=== PATIENT | male | born 1955 | race Caucasian/White ===

== ENCOUNTER → 2016-07-05 08:04 | Day surgery (SDC) | payer OTHER ==
[~2016-07-05 08:04] MED LIST: Buffered Lidocaine 1% SYRIN* 3 ML/SYR SYRINGE INTRADERM ONE; Bupivacaine 0.25% EPI 200,000* 30 ML SDV ONE; Famotidine IV* 10 MG/ML 2 ML (20 mg) IV ONE; Famotidine IV* 10 MG/ML 2 ML (20 mg) ONE; HYDROcodone/ACETAMIN 5-325 MG* 1 TAB PO PRN; Lidocaine 1% MPF wEPI 200,000* 30 ML SDV ONE; Lidocaine 2% PF* 5 ML VIAL ONE; Midazolam* 1 MG/ML 5 ML VIAL (5 MG) ONE; Mineral Oil Sterile, TOPICAL* 25 ML BTL ONE; PROCHLORPERAZINE INJ 5 MG/ML 2 ML VIAL IV PRN; Propofol* 10 MG/ML 20 ML BTL IV PUSH ONE; ceFAZolin 2 GM PREMIX(*) 2 GM/50 ML BAG IVPB ONE; fentaNYL* 50 MCG/ML 2 ML VIAL (100 MCG VIAL) IV PRN; fentaNYL* 50 MCG/ML 2 ML VIAL (100 MCG VIAL) ONE; oxyCODONE/Acetamin 5/325 MG* TAB PO PRN
[2016-07-05 16:08] VITALS: BP 123/62
== END | disposition home or self-care (01) ==
LOC: OR 08:04
PROVIDERS: ATTEND Plastic Surgery
DX: C44.619 Basal cell carcinoma of skin of left upper limb, including shoulder (principal); N18.9 Chronic kidney disease, unspecified; E78.5 Hyperlipidemia, unspecified; G47.33 Obstructive sleep apnea (adult) (pediatric); F31.9 Bipolar disorder, unspecified
CPT/HCPCS: 88305; 88331; 88332; J0690; J2001; J2250; J2704; J3010

== ENCOUNTER 2016-12-29 14:59 | Observation (INO) | payer OTHER ==
[2016-12-29 17:39] LABS: Hematocrit 43 % (42-52); Hemoglobin 14.1 g/dl (14.0-18.0); Mean Corpuscular HGB Conc 33 g/dl (31-36); Mean Corpuscular Hemoglobin 31 pg (27-31); Mean Corpuscular Volume 94 fL (80-94); Mean Platelet Volume 8 um3 (7.4-10.4); Red Blood Count 4.56 10^6/ul (4.0-5.4); Red Cell Distribution Width 14 % (10.5-15); White Blood Count 11.5 10^3/ul (3.5-10.8)
[2016-12-29 18:18] LABS: Albumin 4.2 g/dL (3.2-5.2); BUN/Creatinine Ratio 13.4 (8-20); Calcium 9.5 mg/dL (8.6-10.3); EGFR African American 57.7 (>60); EGFR Non-African American 44.8 (>60); Globulin 3.1 g/dL (2-4); Lithium 0.52 mmol/L (0.6-1.2); Magnesium 2.5 mg/dL (1.9-2.7); Potassium 3.9 mmol/L (3.5-5.0); Total Bilirubin 0.4 mg/dL (0.2-1.0); Total Protein 7.3 g/dL (6.4-8.9)
[2016-12-29 18:19] LABS: Troponin I 0.03 ng/mL (<0.04)
[2016-12-29 18:34] LABS: TSH (Thyroid Stimulating Horm) 1.65 mcIU/mL (0.34-5.60)
--- NOTE | 2016-12-29 18:35 | RAD ---
INDICATION: New onset atrial fibrillation COMPARISON: Chest x-ray dated July 11, 2012 TECHNIQUE: PA and lateral views of the chest were obtained. FINDINGS: The heart and mediastinum are normal in size and contour. The lungs are grossly clear. There is no evidence of large pleural effusion. Degenerative changes of the thoracic spine include loss of intervertebral disc height and anterior marginal osteophyte formation. There is no radiographic evidence of free air beneath the diaphragm IMPRESSION: No radiographic evidence of acute cardiopulmonary disease.
[2016-12-29] MEDS ORDERED: Ibuprofen TAB* 200 MG PO PRN (19:12)
[2016-12-29] MEDS ORDERED: Potassium Chlor TAB* 20 MEQ TAB.ER PO ONE (19:17)
--- NOTE | 2016-12-29 19:35 | ED ---
HPI Cardiac - HPI Summary HPI Summary: 61 y/o male with PMH + for HTN, bipolar, elevated chol presents for heart palpitations. patient states ~ 2-3 weeks ago while eating lunch had episodes where "felt odd" with heart racing, denies chest pain, passing out/ syncope, lightheadedness. tried to get in to see PCP, however was end of day and no EKG available. patient states symptoms lasted throughout the night, and woek the next morning with normal heart rate, asymptomatic. no further episodes until this noon when eating lunch again same symptoms started. Patient went to PC, EKG taken--> a fib, sent to ER. Patient states still can feel heart racing with "funny feeling" but no chest pain, lightheadedness, jaw pain, arm pain. states does not light anything laying on chest, even heavy blanket. - History of Current Complaint Chief Complaint: EDDysrhythmPalp Stated Complaint: A FIB/NEEDS BLOOD THINNER, SENT FROM DR Time Seen by Provider: 12/29/16 17:38 Hx Obtained From: Patient Onset/Duration: Started Hours Ago, Started Weeks Ago Time of Onset: 12:00 Timing: Constant, Lasting Hours Initial Severity: Mild Current Severity: Mild Pain Intensity: 0 Pain Scale Used: 0-10 Numeric Chest Pain Radiates: No Character: Fluttering, Irregular, Skipped Beats Aggravating Factor(s): Nothing Alleviating Factor(s): Nothing Associated Signs and Symptoms: Positive: Palpitations Related History: Similar Episode/Dx as: - ~ 2-3 weeks ago - Allergy/Home Medications Allergies/Adverse Reactions: Allergies Allergy/AdvReac Type Severity Reaction Status Date / Time No Known Allergies Allergy Verified 07/05/16 08:37 Home Medications: Home Medications Lebec Carbonate TAB* 1,200 mg PO QPM 12/29/16 [History Confirmed 12/29/16] PMH/Surg Hx/FS Hx/Imm Hx Previously Healthy: No - HTN, elevated chol, LILY, bipolar Endocrine/Hematology History: Denies: Hx Anemia, Hx Unexplained Bleeding Cardiovascular History: Reports: Hx Hypercholesterolemia, Hx Hypertension - controlled with med, Other Cardiovascular Problems/Disorders - high cholesterol , controlled with med Denies: Hx Aneurysm, Hx Angina, Hx Angioplasty, Hx Auto Implanted Cardiovert Defib, Hx Cardiac Arrest, Hx Cardiomegaly, Hx Congenital Heart Disease, Hx Congestive Heart Failure, Hx Coronary Artery Disease, Hx Deep Vein Thrombosis, Hx Hypotension, Hx Pacemaker/ICD, Hx Peripheral Vascular Disease, Hx Rheumatic Fever, Hx Syncope, Hx Valvular Heart Disease Respiratory History: Reports: Hx Sleep Apnea - cpap Denies: Hx Asthma, Hx Chronic Bronchitis, Hx Chronic Obstructive Pulmonary Disease (COPD), Hx Cystic Fibrosis, Hx Lung Cancer, Hx Pleural Effusion, Hx Pneumonia, Hx Pulmonary Edema, Hx Pulmonary Embolism, Hx Seasonal Allergies, Other Respiratory Problems/Disorders GI History: Denies: Hx Cirrhosis, Hx Crohn's Disease, Hx Diverticulosis, Hx Gall Bladder Disease, Hx Gastroesophageal Reflux Disease, Hx Gastrointestinal Bleed, Hx Hiatal Hernia, Hx Irritable Bowel, Hx Jaundice, Hx Obstructive Bowel, Hx Ileostomy, Hx Pyloric Stenosis, Hx Ulcer, Other GI Disorders Musculoskeletal History: Reports: Hx Arthritis - right knee, currently in physical therapy, Hx Back Problems, Hx Tendonitis - right wrist, flares up occas Denies: Hx Bursitis, Hx Congenital Bone Abnormalities, Hx Fibromyalgia, Hx Gout, Hx Orthopedic Injury, Hx Osteoporosis, Hx Scoliosis, Other Musculoskeletal History Sensory History: Reports: Hx Contacts or Glasses - glasses Denies: Hx Cataracts, Hx Eye Injury, Hx Eye Prosthesis, Hx Glaucoma, Hx Macular Degeneration, Hx Vision Problem, Hx Deafness, Hx Hearing Aid, Hx Hearing Problem, Other Sensory Impairments Opthamlomology History: Reports: Hx Contacts or Glasses - glasses Denies: Hx Cataracts, Hx Eye Injury, Hx Eye Prosthesis, Hx Glaucoma, Hx Macular Degeneration, Hx Vision Problem, Other Sensory Impairments Neurological History: Reports: Hx Migraine, Other Neuro Impairments/Disorders - bipolar, controlled with med Denies: Hx Dementia, Hx Developmental Delay, Hx Headaches, Hx Seizures, Hx Spinal Cord Injury, Hx Transient Ischemic Attacks (TIA) Psychiatric History: Reports: Hx Anxiety, Hx Depression - Cancer History Cancer Type, Location and Year: facial Hx Chemotherapy: No Hx Radiation Therapy: No - Surgical History Surgery Procedure, Year, and Place: removal of cyst right hand, 2004 - [facility] [place]. laminectomy, 2009 - [facility]. umbilical hernia repair, - [facility]. removal of multiple basal cell carcinomas, - [facility] Hx Anesthesia Reactions: No Infectious Disease History: Yes Infectious Disease History: Denies: Hx Clostridium Difficile, Hx Hepatitis, Hx Human Immunodeficiency Virus (HIV), Hx Shingles, Hx Tuberculosis, Traveled Outside the [place] in Last 30 Days - Social History Alcohol Use: Occasionally Alcohol Amount: 2 per glasses wine per month Substance Use Type: Reports: None Smoking Status (MU): Never Smoked Tobacco Review of Systems Constitutional: Negative Eyes: Negative ENT: Negative Positive: Palpitations Respiratory: Negative Gastrointestinal: Negative Genitourinary: Negative Musculoskeletal: Negative Skin: Negative Neurological: Negative Psychological: Normal All Other Systems Reviewed And Are Negative: Yes NIH Scale - NIH Scale Level of Consciousness: Alert/Keenly Responsive Ask Patient the Month and His/Her Age: Both Correct Best Language (Describe Picture, Name Items): No Aphasia Physical Exam Triage Information Reviewed: Yes Vital Signs On Initial Exam: Initial Vitals Temp Pulse Resp BP Pulse Ox 98.3 F 96 20 146/92 95 12/29/16 15:14 12/29/16 15:14 12/29/16 15:14 12/29/16 15:14 12/29/16 15:14 Vital Signs Reviewed: Yes Appearance: Positive: Well-Appearing, No Pain Distress, Well-Nourished Skin: Positive: Warm, Skin Color Reflects Adequate Perfusion, Other - PT, rad pulses 2+ b/l, irregular Head/Face: Positive: Normal Head/Face Inspection Eyes: Positive: EOMI Neck: Positive: Supple, Nontender, No Lymphadenopathy Respiratory/Lung Sounds: Positive: Clear to Auscultation, Breath Sounds Present Cardiovascular: Positive: Pulses are Symmetrical in both Upper and Lower Extremities, IRR, Tachycardia, S1, S2. Negative: Bradycardia, Murmur, Rub, Leg Edema Left, Leg Edema Right Abdomen Description: Positive: Nontender, No Organomegaly, Soft Bowel Sounds: Positive: Present Musculoskeletal: Positive: Normal, Strength/ROM Intact - LE b/l Neurological: Positive: Normal, Sensory/Motor Intact, Alert, Oriented to Person Place, Time, CN Intact II-III, Facial Symmetry, Speech Normal Psychiatric: Positive: Normal AVPU Assessment: Alert - [place] Coma Scale Best Eye Response: 4 - Spontaneous Best Motor Response: 6 - Obeys Commands Best Verbal Response: 5 - Oriented Coma Scale Total: 15 Diagnostics - Vital Signs Vital Signs Temp Pulse Resp BP Pulse Ox 12/29/16 15:14 98.3 F 96 20 146/92 95 - Laboratory Lab Results: Lab Results 12/29/16 12/29/16 12/29/16 Range/Units 17:28 17:28 17:28 WBC 11.5 H (3.5-10.8) 10^3/ul RBC 4.56 (4.0-5.4) 10^6/ul Hgb 14.1 (14.0-18.0) g/dl Hct 43 (42-52) % MCV 94 (80-94) fL MCH 31 (27-31) pg MCHC 33 (31-36) g/dl RDW 14 (10.5-15) % Plt Count 240 (150-450) 10^3/ul MPV 8 (7.4-10.4) um3 Neut % (Auto) 61.7 (38-83) % Lymph % (Auto) 25.5 (25-47) % [place] % (Auto) 9.8 H (1-9) % Eos % (Auto) 2.8 (0-6) % Baso % (Auto) 0.2 (0-2) % Absolute Neuts (auto) 7.1 (1.5-7.7) 10^3/ul Absolute Lymphs (auto) 2.9 (1.0-4.8) 10^3/ul Absolute Monos (auto) 1.1 H (0-0.8) 10^3/ul Absolute Eos (auto) 0.3 (0-0.6) 10^3/ul Absolute Basos (auto) 0 (0-0.2) 10^3/ul Absolute Nucleated RBC 0.01 10^3/ul Nucleated RBC % 0.1 INR (Anticoag Therapy) 0.94 (0.89-1.11) APTT 31.1 (26.0-36.3) seconds D-Dimer, Quantitative < 200 (Less Than 230) ng/mL Sodium 143 (133-145) mmol/L Potassium 3.9 (3.5-5.0) mmol/L Chloride 111 (101-111) mmol/L Carbon Dioxide 23 (22-32) mmol/L Anion Gap 9 (2-11) mmol/L BUN 21 (6-24) mg/dL Creatinine 1.57 H (0.67-1.17) mg/dL Est GFR ( Amer) 57.7 (>60) Est GFR (Non-Af Amer) 44.8 (>60) BUN/Creatinine Ratio 13.4 (8-20) Glucose 101 H (70-100) mg/dL Lactic Acid (0.5-2.0) mmol/L Calcium 9.5 (8.6-10.3) mg/dL Magnesium 2.5 (1.9-2.7) mg/dL Total Bilirubin 0.40 (0.2-1.0) mg/dL AST 29 (13-39) U/L ALT 35 (7-52) U/L Alkaline Phosphatase 52 (34-104) U/L CK-MB (CK-2) 6.2 (0.6-6.3) ng/mL Troponin I 0.03 (<0.04) ng/mL Total Protein 7.3 (6.4-8.9) g/dL Albumin 4.2 (3.2-5.2) g/dL Globulin 3.1 (2-4) g/dL Albumin/Globulin Ratio 1.4 (1-3) TSH 1.65 (0.34-5.60) mcIU/mL Lebec 0.52 L (0.6-1.2) mmol/L 12/29/16 Range/Units 17:28 WBC (3.5-10.8) 10^3/ul RBC (4.0-5.4) 10^6/ul Hgb (14.0-18.0) g/dl Hct (42-52) % MCV (80-94) fL MCH (27-31) pg MCHC (31-36) g/dl RDW (10.5-15) % Plt Count (150-450) 10^3/ul MPV (7.4-10.4) um3 Neut % (Auto) (38-83) % Lymph % (Auto) (25-47) % [place] % (Auto) (1-9) % Eos % (Auto) (0-6) % Baso % (Auto) (0-2) % Absolute Neuts (auto) (1.5-7.7) 10^3/ul Absolute Lymphs (auto) (1.0-4.8) 10^3/ul Absolute Monos (auto) (0-0.8) 10^3/ul Absolute Eos (auto) (0-0.6) 10^3/ul Absolute Basos (auto) (0-0.2) 10^3/ul Absolute Nucleated RBC 10^3/ul Nucleated RBC % INR (Anticoag Therapy) (0.89-1.11) APTT (26.0-36.3) seconds D-Dimer, Quantitative (Less Than 230) ng/mL Sodium (133-145) mmol/L Potassium (3.5-5.0) mmol/L Chloride (101-111) mmol/L Carbon Dioxide (22-32) mmol/L Anion Gap (2-11) mmol/L BUN (6-24) mg/dL Creatinine (0.67-1.17) mg/dL Est GFR ( Amer) (>60) Est GFR (Non-Af Amer) (>60) BUN/Creatinine Ratio (8-20) Glucose (70-100) mg/dL Lactic Acid 1.2 (0.5-2.0) mmol/L Calcium (8.6-10.3) mg/dL Magnesium (1.9-2.7) mg/dL Total Bilirubin (0.2-1.0) mg/dL AST (13-39) U/L ALT (7-52) U/L Alkaline Phosphatase (34-104) U/L CK-MB (CK-2) (0.6-6.3) ng/mL Troponin I (<0.04) ng/mL Total Protein (6.4-8.9) g/dL Albumin (3.2-5.2) g/dL Globulin (2-4) g/dL Albumin/Globulin Ratio (1-3) TSH (0.34-5.60) mcIU/mL Lebec (0.6-1.2) mmol/L Result Diagrams: 12/29/16 17:28 12/29/16 17:28 Lab Statement: Any lab studies that have been ordered have been reviewed, and results considered in the medical decision making process. Disposition - Course Course Of Treatment: EKG- A fib, rate 80-120 during examination, case discussed with Dr. Boyd, [place] [facility] [place] obtained. - Differential Dx - Cardiopulmonary Differential Diagnoses - Cardiopulmonary: Atrial Fibrillation, CHF, Digoxin Toxicity - Diagnoses Provider Diagnoses: Atrial fibrillation Discharge - Discharge Plan Condition: Fair Disposition: ADMITTED TO [facility]
[2016-12-29 19:39] LABS: Urine Bilirubin Negative (Negative); Urine Glucose 1+(50 mg/dL) (Negative); Urine Nitrite Negative (Negative)
--- NOTE | 2016-12-29 20:01 | ED ---
Progress - Progress Note Progress Note: This 61 yr old male was seen at the request of GUANAKO Gonzales working with me in ED. The patient has had palpitations since about 1pm this afternoon. He has not had CP, SOB, or other symptoms. He states he had an episode of the same a couple weeks ago but could not get to doctor while had the symptoms. He is other lopez comfortable. Denies history of ETOH. EXAM: Comfortable, alert and oriented. Neuro Nonfocal Cardiac: without murmur or carla. It is irregular irregular about 100 per minute. Lungs CTA Abd Soft and non tender Legs without edema or tenderness. Assessment Afib increase in ventricular response. He will be admitted to hospitalists for further managment. Course/Dx - Course Course Of Treatment: EKG- A fib, rate 80-120 during examination, case discussed with Dr. Boyd, patient admitted to [facility] [place], blood work obtained. - Diagnoses Provider Diagnoses: Atrial fibrillation
--- NOTE | 2016-12-29 20:55 | HP ---
CC: Dr. Oseguera * [facility] MEDICINE HISTORY AND PHYSICAL: DATE OF ADMISSION: 12/29/16 PRIMARY CARE PHYSICIAN: Dr. Oseguera. ATTENDING PHYSICIAN: Emma Montanez DO * (dictation provided by Korin Colin NP ). CHIEF COMPLAINT: Palpitations. HISTORY OF PRESENT ILLNESS: Mr. Sims is a 61-year-old male with a past medical history of bipolar disorder and hypertension, who presents to the hospital today with palpitations, found to be in AFib at his primary care physician's office. Mr. Sims states that several weeks ago he had an episode where he felt that his heart was racing. He went to his primary care physician' s office, but they were unable to do an EKG at that point and requested that he come back the following morning, but by that point his symptoms had resolved. The patient was instructed that if he were to have symptoms of rapid heart rate , he should come back to the office immediately. The patient states that during the first episode, his heart rate was running about 140. Today he again had symptoms of rapid heart rate and then went to Dr. Oseguera's office where he was found to be in AFib with a heart rate running into the 120s. The patient reports feeling his heart racing and perhaps feeling a bit tired, but did not notice any chest pain or shortness of breath or dyspnea on exertion. Mr. Sims states that he only drinks alcohol occasionally. He drinks a couple of cups of coffee in the morning and a coke for lunch, and sometimes has ice tea , maybe once per week. He has no history of smoking, no history of lung disease. In the emergency room, Mr. Sims was confirmed to be in atrial fibrillation. His heart rate is running about 100 to 115. His labs show his potassium is 3.9 , magnesium is 2.5. His blood pressure is stable and running in the 140s. PAST MEDICAL HISTORY: 1. Bipolar disorder. 2. Hypertension. 3. History of lumbar laminectomy, 2008. 4. History of umbilical hernia repair, 2011. 5. History of skin cancer, basal cell carcinoma. MEDICATIONS: 1. Atorvastatin 40 mg p.o. q.p.m. 2. Coenzyme Q10 200 mg p.o. q.p.m. 3. Irbesartan 300 mg p.o. q.p.m. 4. Ibuprofen 200 mg p.o. q.6 hours p.r.n. 5. Kersey carbonate 1200 mg p.o. q.p.m. 6. Lamotrigine 300 mg p.o. q.p.m. ALLERGIES: No known drug allergies. FAMILY HISTORY: The patient reports his father had esophageal cancer and in his 80s. Mother had her first heart attack in her 70s, but related to mitral valve replacement around the age 80. SOCIAL HISTORY: No report of tobacco or drug use. He drinks alcohol occasionally. He is retired. His is his healthcare proxy. REVIEW OF SYSTEMS: A 14-point review of systems was completed with Mr. Sims, and all those not mentioned above were negative. PHYSICAL EXAMINATION GENERAL: Mr. Sims is sitting on the bed. He is in no acute distress. VITAL SIGNS: Blood pressure 146/92, heart rate 96, temperature 98.3, respiratory rate 20, O2 saturation 95% on room air. LUNGS: Clear to auscultation bilaterally with no accessory muscle use and good aeration. HEART: S1, S2. No murmur, rub, or gallop, and irregular. ABDOMEN: Soft, nontender with bowel sounds positive x4. EXTREMITIES: No cyanosis or edema. NEUROLOGIC: He is alert. He is oriented x3. Moves all extremities equally. There is no facial asymmetry or focal weakness. Extraocular movements are intact. SKIN: Intact. DIAGNOSTIC STUDIES/LAB DATA: Sodium 143, potassium 3.9, chloride 111, serum bicarbonate 23, BUN 21, creatinine 1.57, glucose 101, lactic acid 1.2. Troponin 0.03. WBC 11.5, hemoglobin 14.1, hematocrit 43, platelet count 240, 000. ASSESSMENT/PLAN: Mr. Sims is a 61-year-old male with a past medical history of hypertension and bipolar disorder, who presents to the hospital today with concern for atrial fibrillation with rapid ventricular response. Our plans are for observation in the hospital for the followin. Atrial fibrillation with rapid ventricular response: Plan to treat the patient with metoprolol for rate control. I plan to check a transthoracic echocardiogram. I do not have any clear indication of why the patient is having atrial fibrillation as he has no significant alcohol history or lung disease. Perhaps, it is related to caffeine use or his slightly low potassium. We will replace potassium now. His magnesium is 2.5. At this point, the patient's CHADS-VASC2 score is 1, putting him at a low risk for stroke. I plan to use aspirin only. I think the patient could continue conversation with Dr. Oseguera regarding anticoagulation going forward, especially after he reaches the age of 63. 2. Chronic kidney disease. The patient does not have this listed as a problem , but it is at baseline. I encouraged him to follow up with Dr. Oseguera. He is on irbesartan as outpatient. I am planning to hold that tonight as we are adding metoprolol, but that can be added in a low dose depending on the patient' s blood pressure or we can switch over to an alternate MARILYN inhibitor, etc. 3. DVT prophylaxis with SCDs. 4. Code status is full code. 5. Bipolar disorder: Continue home medications. TIME SPENT: Approximately 60 minutes was spent on admission of this patient; more than half time was spent with the patient at the bedside reviewing the events leading up to this hospitalization, performing the physical examination, and reviewing my plan of care. KORIN COLIN NP [id number]/CPS #: [id number] ALBERTO
[2016-12-29] MEDS: Metoprolol Tartrate TAB* 25 MG PO SCH (20:56)
[2016-12-29] MEDS: NS 0.9% 1000 ML* 1,000 ML IV SCH (21:00)
[2016-12-29] MEDS ORDERED: Lithium Carbonate TAB* 300 MG PO SCH (22:00)
[2016-12-29] MEDS ORDERED: lamoTRIgine TAB(*) 100 MG PO SCH (22:00)
[2016-12-29] MEDS ORDERED: Atorvastatin* 40 MG TAB PO SCH (22:00)
[2016-12-30] MEDS: NS 0.9% 1000 ML* 1,000 ML IV SCH ×2 (04:50→14:59)
[2016-12-30] MEDS ORDERED: Aspirin Low Dose CHEW TAB* 81 MG PO SCH (09:00)
[2016-12-30] MEDS: Metoprolol Tartrate TAB* 25 MG PO SCH (09:33)
--- NOTE | 2016-12-30 12:29 | ECHO ---
Patient: CEE LINCOLN [facility] Rec#: [id number] : 1955 Date: 12/30/2016 Age: 61y Height: 177.8 cm / 70.0 in Weight: 117.9 kg / 259.9 lbs Sex: M BSA: 2.3 Room#: 440 Admit Date#: 12/29/2016 Type: Inpatient Referring: Korin Colin NP Reading: Jewel Mckenna DO Rag Baler: Kimi Figueroa RN RDCS CC: Max Oseguera MD Transthoracic Echocardiogram Indication: New onset A. fib BP: 104/81 HR: 75 Rhythm: A-Fib Findings History: HTN, bipolar disorder, lumbar laminectomy Technical Comments: The study quality is fair. The study is technically limited due to patient body habitus. Completed at 0905. Left Ventricle: The left ventricular chamber size is normal. Moderate concentric left ventricular hypertrophy is observed.with more prominent basal septum Global left ventricular wall motion and contractility are within normal limits. There is normal left ventricular systolic function. The estimated ejection fraction is 60-65%. The assessment of diastolic function is non-diagnostic. Left Atrium: The left atrial chamber size is normal. Right Ventricle: The right ventricular chamber size and systolic function are within normal limits. Right Atrium: The right atrial cavity size is normal. Aortic Valve: The aortic valve is trileaflet. The aortic valve leaflets are mildly thickened. There is no evidence of aortic regurgitation. There is no evidence of aortic stenosis. Mitral Valve: The mitral valve leaflets appear normal. There is a trace of mitral regurgitation. There is no evidence of mitral stenosis. Tricuspid Valve: The tricuspid valve leaflets are normal. There is trace tricuspid regurgitation. No pulmonary hypertension is noted. Pulmonic Valve: The pulmonic valve appears normal. There is a trace pulmonic regurgitation. There is no pulmonic stenosis. Pericardium: There is no significant pericardial effusion. Aorta: There is no dilatation of the ascending aorta. The aortic arch is not well visualized. There is no dilation of the aortic root. Pulmonary Artery: The main pulmonary artery is not well visualized. Venous: The venous system is not well visualized. The inferior vena cava is not visualized. Conclusions Patient is in atrial fibrillation at time of study The left ventricular chamber size is normal. Moderate concentric left ventricular hypertrophy is observed. There is normal left ventricular systolic function. The estimated ejection fraction is 60-65%. Global left ventricular wall motion and contractility are within normal limits. The left atrial chamber size is normal. The right ventricular chamber size and systolic function are within normal limits No significant valvular abnormalities noted. No prior studies available for comparison at time of study. Measurements Name Value Normal Range Ao root diameter (MM) 1.9 cm - LA dimension (AP) MM 14 cm - LA:Ao ratio (MM) 8 ratio - Ao root diameter (MM) in22 cm/m2 - Name Value Normal Range RVDdMajor (2D) 3.9 cm (2.2 - 4.4) RAd ISD 4CH 4.4 cm (3.4 - 4.9) RA (A4C)W 4 cm (2.9 - 4.6) IVSd (2D) 1.5 cm (0.6 - 1) LVPWd (2D) 1.6 cm (0.6 - 1) LVIDd (2D) 4.3 cm (3.6 - 5.4) LVIDs (2D) 2.9 cm - LV FS (2D) 33 % (25 - 45) Aortic Annulus 2 cm (1.4 - 2.6) Ao root diameter (2D) 3.2 cm (2.1 - 3.5) Ascending Ao 3.4 cm (2.1 - 3.4) LA dimension (AP) 2D 3.4 cm (2.3 - 3.8) LAd ISD 4CH 5.1 cm (2.9 - 5.3) LA ISD 4CH W 3.5 cm (2.5 - 4.5) Name Value Normal Range LA ESV SP 4CH (A/L) 45.1 ml - LA ESV SP 2CH (A/L) 62.2 ml - LA ESV BP (A/L) 57.2 ml - LA ESV BP (A/L) index 24.5 ml/m2 - LA ESV SP 4CH (MOD) 40 ml - LA ESV SP 2CH (MOD) 60 ml - Name Value Normal Range MV E-wave Vmax 0.66 m/sec - MV deceleration time 250 msec - LV septal e' Vmax 0.09 m/sec - LV lateral e' Vmax 0.11 m/sec - LV E:e' septal ratio 7.3 ratio - LV E:e' lateral ratio 6 ratio - Name Value Normal Range AV Vmax 1.3 m/sec - AV VTI 22.9 cm - AV peak gradient 6.8 mmHg - AV mean gradient 4 mmHg - LVOT Vmax 1.1 m/sec - LVOT VTI 18.3 cm - LVOT peak gradient 4.6 mmHg - LVOT mean gradient 2.9 mmHg - Name Value Normal Range TR Vmax 1.9 m/sec - TR peak gradient 14 mmHg - RAP 8 mmHg - RVSP 22 mmHg - Name Value Normal Range PV Vmax 0.91 m/sec -
[2016-12-30 16:11] VITALS: BP 113/63
--- NOTE | 2016-12-31 05:59 | DS ---
ADDENDUM NOW INCLUDED ON [facility] REPORT CC: Dr. Oseguera * DISCHARGE SUMMARY: DATE OF ADMISSION: 12/29/16 DATE OF DISCHARGE: 12/30/16 PRIMARY CARE PHYSICIAN: Dr. Oseguera. PRIMARY DISCHARGE DIAGNOSIS: New onset atrial fibrillation. SECONDARY DISCHARGE DIAGNOSES: 1. Bipolar disorder. 2. Hypertension. HOSPITAL COURSE BY PROBLEM: 1. New onset atrial fibrillation. Mr. Sims was admitted with palpitations and was found to be in AFib with RVR at his PCP's office, so he was transferred to the emergency department where he was confirmed to be in AFib with RVR. He was started on metoprolol in the emergency department and was continued on this upon transfer to the floor where he converted to normal sinus rhythm. An echocardiogram was performed, which showed a preserved ejection fraction, a normal left atrial chamber size, and a normal right ventricular chamber size. No valvular abnormalities were noted. He denied alcohol and tobacco use. He did admit to some caffeine use and his TSH was within normal limits at 1.65. He had no other predisposing risk factors for atrial fibrillation; however, he is obese with a barrel chest and may have undiagnosed sleep apnea that may need further workup. Upon discharge, he was in normal sinus rhythm. His short- acting metoprolol was converted to Toprol-XL. His CHADS2-VASc score is 1, so he is being discharged on a baby aspirin only. 2. Bipolar disorder. He was continued on lithium and lamotrigine. 3. Chronic kidney disease. His creatinine was at his baseline at 1.5 on this admission. He was continued on irbesartan. 4. Disposition. The patient was discharged to home on 12/30/16 in fair condition. ADDENDUM: PHYSICAL EXAMINATION: On 12/30/16: Vital Signs: Temperature 98.5 degrees, heart rate 59, respiratory rate 17, pulse ox 96% on room air, blood pressure 113/63. General: Alert, well- appearing man in no distress. HEENT: Pupils equal, round, and reactive to light. Extraocular movements intact. Moist mucosa. Neck: No JVP. No cervical adenopathy. Chest: Regular rate and rhythm. No murmurs. PMI nondisplaced. Lungs: Clear bilaterally. Abdomen: Soft, nontender, nondistended , obese. Extremities: No edema. No ecchymosis. Pulses 2+ throughout. Neurologic: Strength 5/5 throughout. Deep tendon reflexes are 2+. Sensation intact. Oriented x3. REVIEW OF SYSTEMS: Negative for palpitation, shortness of breath, chest pain, headache, weakness, nausea, vomiting, diarrhea or constipation. [id number]/[facility]PS #: [id number]- [id number]/CPS #: [id number] [facility]
--- NOTE | 2016-12-31 07:29 | DS ---
DISCHARGE SUMMARY: * ADDENDUM: PHYSICAL EXAMINATION: On 12/30/16: Vital Signs: Temperature 98.5 degrees, heart rate 59, respiratory rate 17, pulse ox 96% on room air, blood pressure 113/63. General: Alert, well- appearing man in no distress. HEENT: Pupils equal, round, and reactive to light. Extraocular movements intact. Moist mucosa. Neck: No JVP. No cervical adenopathy. Chest: Regular rate and rhythm. No murmurs. PMI nondisplaced. Lungs: Clear bilaterally. Abdomen: Soft, nontender, nondistended , obese. Extremities: No edema. No ecchymosis. Pulses 2+ throughout. Neurologic: Strength 5/5 throughout. Deep tendon reflexes are 2+. Sensation intact. Oriented x3. REVIEW OF SYSTEMS: Negative for palpitation, shortness of breath, chest pain, headache, weakness, nausea, vomiting, diarrhea or constipation. [id number]/[facility] #: [id number] [facility]
== END 2016-12-30 17:00 | disposition home or self-care (01) ==
LOC: ED 14:59 → MEDTELE 19:10
PROVIDERS: ADMIT Internal Medicine; ATTEND Internal Medicine
DX: I48.91 Unspecified atrial fibrillation (principal); F31.9 Bipolar disorder, unspecified; I12.9 Hypertensive chronic kidney disease with stage 1 through stage 4 chronic kidney disease, or unspecified chronic kidney disease; N18.9 Chronic kidney disease, unspecified; R00.0 Tachycardia, unspecified; I45.81 Long QT syndrome; I51.7 Cardiomegaly; Z79.899 Other long term (current) drug therapy
CPT/HCPCS: 36415; 71020; 80053; 80178; 81003; 82553; 83605; 83735; 84443; 84484; 85025; 85379; 85610; 85730; 93005; 93306; 94660; 96360; 96361; 99284; A9270-GY; G0378

== ENCOUNTER 2019-06-20 09:05 | Observation (INO) | payer MEDICARE ==
[2019-06-20] MEDS ORDERED: Perflutren Lipid Microsphere* 3 ML VIAL ONE (09:52)
[2019-06-20 12:38] LABS: ABS Basophils 0.1 10^3/ul (0-0.2); ABS Eosinophils 0.2 10^3/ul (0-0.6); ABS Monocytes 0.6 10^3/ul (0-0.8); ABS Neutrophils 5.8 10^3/ul (1.5-7.7); Hematocrit 41 % (42-52); Hemoglobin 13.5 g/dL (14.0-18.0); Lymphocyte % 23.2 %; Mean Corpuscular HGB Conc 33 g/dL (31-36); Mean Corpuscular Hemoglobin 32 pg (27-31); Mean Corpuscular Volume 96 fL (80-94); Mean Platelet Volume 9.4 fL (7.4-10.4); Platelet Count 189 10^3/uL (150-450); Red Blood Count 4.23 10^6 /uL (4.18-5.48); Red Cell Distribution Width 15 % (10-15); White Blood Count 8.7 10^3/uL (3.5-10.8)
[2019-06-20 12:48] LABS: Activated Partial Thrombo Time 37.2 seconds (26.0-38.0); INR 1.23 (0.82-1.09)
[2019-06-20 12:54] LABS: ALT 37 U/L (7-52); AST 42 U/L (13-39); Albumin 4.1 g/dL (3.2-5.2); Albumin/Globulin Ratio 1.3 (1-3); Alkaline Phosphatase 64 U/L (34-104); BUN/Creatinine Ratio 11.5 (8-20); Blood Urea Nitrogen 20 mg/dL (6-24); CO2 Carbon Dioxide 28 mmol/L (22-32); Calcium 9.8 mg/dL (8.6-10.3); Chloride 111 mmol/L (101-111); EGFR African American 47.7 (>60); EGFR Non-African American 39.5 (>60); Globulin 3.1 g/dL (2-4); Glucose 210 mg/dL (70-100); Total Protein 7.2 g/dL (6.4-8.9)
[2019-06-20 13:04] LABS: Troponin I 0.03 ng/mL (<0.03)
[2019-06-20 13:05] LABS: Anion Gap 7 mmol/L (2-11); Sodium 146 mmol/L (135-145)
[2019-06-20] MEDS ORDERED: Ondansetron INJ* 2 MG/ML VIAL IV PRN (13:50)
[2019-06-20] MEDS ORDERED: Acetaminophen TAB* 325 MG PO PRN (13:50)
[2019-06-20] MEDS ORDERED: Aspirin TAB* 325 MG PO ONE (14:00)
[2019-06-20] MEDS ORDERED: Ticagrelor* 90 MG TAB PO ONE (14:00)
[2019-06-20] MEDS ORDERED: Heparin DRIP 25,000 UNITS(*) 25,000 UNITS/500 ML BAG IV SCH (14:00)
--- NOTE | 2019-06-20 14:01 | CONS ---
CC: GUANAKO Quinonez; Hospitalist Service CARDIOLOGY CONSULTATION REPORT: DATE OF CONSULT: 06/20/19 REASON FOR CONSULT: Abnormal stress test. HISTORY OF PRESENT ILLNESS: Mr. Sims is a 64-year-old gentleman whom I first met 06/03/19, referred for chest pressure, the sensation someone was sitting on his chest associated with soreness in his hand. The patient had also had stopped all his medications about mid April 2019 because of nausea and vomiting. The patient underwent an exercise echo today. He had poor exercise ability, was unable to reach target heart rate. His resting EKG showed small inferior Q' s and inverted T-waves in inferolateral leads. With exercise, he had ST elevation in the inferior leads. His resting echo showed a fixed defect in the posterior wall at the very base. After exercise, the entire inferior wall became severely hypo-to- akinetic and chamber dilated in the 2-chamber view. The patient did not have recurrence of the chest pressure, sensation someone was sitting on his chest. He had some left arm pain that seemed to be more related to the blood pressure cuff and the stress test Post exercise, he feels back to normal and is hungry and wants to eat. PAST MEDICAL HISTORY: 1. Paroxysmal AFib 2017, on Xarelto. 2. Dyslipidemia. 3. Hypertension. 4. Centripetal obesity. 5. Sleep apnea. 6. Reflux. 7. Spinal stenosis. 8. Bipolar disorder. 9. Obstructive sleep apnea. 10. Chronic kidney disease. 11. Hyperglycemia/probable diabetes. PAST SURGICAL HISTORY: Includes: 1. Laminectomy. 2. Hernia repair. 3. Cyst. 4. Basal cell carcinoma surgery. CURRENT OUTPATIENT MEDICATIONS: Include: 1. [place] carbonate 300 mg 4 tabs daily. 2. Xarelto 20 mg daily (held this morning). 3. He is on a proton pump inhibitor started yesterday. Prior outpatient medications based on an old list had included: 1. Irbesartan 300 mg a day. 2. Atorvastatin 40 mg a day. 3. Coenzyme Q. 4. Lamotrigine ER 300 mg a day. ALLERGIES: He has no identified drug allergies. FAMILY HISTORY: Significant in that his mother of heart disease. His older sister had a history of colon cancer. He had a brother with aortic dissection and father of gastric cancer and his mother had a history of heart disease uncertain type. SOCIAL HISTORY: The patient is , with children. 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 Never smoked. No history of alcohol or recreational drug use. Drinks a cup of coffee a day and sodas. REVIEW OF SYSTEMS: Positive for exertional dyspnea, for his recent nausea, vomiting he felt was related to medications. He has arthritic pain that impacts ambulation. He has been under stress from the COVID virus in his family. He denies active chest pain, pressure, heaviness, arm pain, orthopnea, PND, fevers, chills, sweats. He has no coughing. DIAGNOSTIC STUDIES/LAB DATA: Labs from 12/11/18 showed a white count 17, hematocrit 38, platelets 229. Sodium 142, potassium 4.2, glucose 146, BUN 29, creatinine 1.6, GFR 43, magnesium 2.3. EKG from 06/03/19 showed normal sinus rhythm, 63 beats a minute, inverted T- waves in the inferior and lateral leads new replacing flattened T-waves from an EKG at [facility]. ECG 07/26/12: NSR, no Q's noted in the inferior leads, normal ST/T waves. ECHO [employer] 06/13/2019: Mod-severe LVH, EF 55-60%, no wall motion abnormalities. Normal valve function. Lexiscan myoview study 07/12/12: EF 58%, normal perfusion rest and post stress. Stress echo today as above abnormal with fixed and reversible defect, poor exercise ability. ASSESSMENT AND PLAN: In summary, Mr. Sims is a 64-year-old gentleman, being admitted for markedly abnormal stress test with evidence of inducible ischemia in the inferior wall at low level exercise associated with ST elevation. He did not have reproduction of his chest discomfort, but with hyperglycemia, probable diabetes, he is at high risk for silent ischemia. The patient's recent history with chest heaviness, sensation of someone sitting on his chest and his nausea/medication intolerance could all have been anginal. The plan is to cath in the morning. I have discussed this with Dr. Bhatia. For the patient's ischemia, I recommend starting a low-dose beta-elaina and Norvasc and potentially resuming an MARILYN inhibitor based on updated labs if creatinine allows. Heparin drip as per request from Dr. Bhatia. Initiation of Brilinta loading today. Resumption of a statin, I would recommend atorvastatin 80 mg a day. Keep off Xarelto for now, monitor. If pt had asymptomatic afib when off his Xarelto could have had an embolic PA as well. Updated labs, electrolytes, lipids, LFTs, and hemoglobin A1c and troponin are recommended. The patient is high risk with his recent nausea and vomiting, this may limit what medications he tolerates if it is in fact due to meds and GI issues and ot an anginal equivalent, we will see how he does in terms of potential for needing any additional GI assistance and await labs and cath results for additional recommendations. This patient is high risk for vascular disease. Thank you for allowing me to assist in this nice gentleman's care. [id number]/[facility] #: [id number] ALBERTO
[2019-06-20] MEDS: NS 0.9% 1000 ML** 1,000 ML IV SCH ×2 (14:06→23:17)
[2019-06-20 14:30] LABS: Cholesterol 173 mg/dL; HDL Cholesterol 24.9 mg/dL; LDL Cholesterol 77 mg/dL; Triglycerides 356 mg/dL
[2019-06-20] MEDS: Heparin VIAL(*) 5000 UNITS/ML VIAL (FIVE THOUSAND) IV SCH ×2 (15:31→22:19)
[2019-06-20] MEDS: Heparin DRIP 25,000 UNITS(*) 25,000 UNITS/500 ML BAG IV SCH (15:34)
[2019-06-20] MEDS: Atorvastatin* 80 MG TAB PO SCH (16:34)
[2019-06-20 16:37] LABS: Troponin I 0.04 ng/mL (<0.03)
--- NOTE | 2019-06-20 17:04 | HP ---
AMENDED REPORT NOW INCLUDES DESIGNATED COSIGNER - ESIGNED BEFORE ADJUSTMENT* ADMISSION HISTORY AND PHYSICAL: DATE OF ADMISSION: 06/20/19 PRIMARY CARE PHYSICIAN: Dr. Oseguera. PROVIDER: Shadia Ruiz NP ATTENDING PHYSICIAN: Dr. Livingston.* (DICTATED BY SHADIA RUIZ NP) OTHER PROVIDERS: Dr. Villegas and Dr. Bhatia. CHIEF COMPLAINT: Chest pain and pressure. HISTORY OF PRESENT ILLNESS: This is a 64-year-old male with a past medical history significant for bipolar, hypertension, and AFib, who was seen in [facility] today for an outpatient exercise echo with Dr. Villegas. He was unable to reach his target heart rate; however, even at rest, showed small inferior Q and inverted T waves in inferior lateral leads; with exercise, he had ST elevation in inferior leads. His resting echo did show a fixed defect of the posterior wall at the vary base, and after exercise, the entire inferior wall became severely hypo to akinetic. During this time, he did not have any recurrence of chest pressure or sensation that somebody was sitting on his chest, though he had some left arm pain that could be more related to the blood pressure cuff. His history of chest pain and pressure started in November or December of this past year where he was waking up with chest pressure daily that progressed to pain. He was unable to verbalize any specific triggers or relievers. Some of it does appear to be more anxiety related; however, he has been woken up out of the sleep due to chest pain and pressure. The hospitalists were asked to evaluate the patient for admission. PAST MEDICAL HISTORY: Bipolar, hypertension, obstructive sleep apnea with CPAP , basal cell carcinoma, diabetes type 2, GERD, AFib, hyperlipidemia, anxiety, and prostate cancer. PAST SURGICAL HISTORY: In 2008, he had a lumbar laminectomy, 2012 umbilical hernia repair. He had prostatectomy. HOME MEDICATIONS: 1. Lansoprazole 30 mg p.o. daily. 2. Xarelto 20 mg p.o. daily. 3. [place] carbonate 1200 mg p.o. q.p.m. ALLERGIES: To nothing. FAMILY HISTORY: Father due to gastric cancer. Mother due to heart disease. 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 He has never smoked. Denied any ETOH use and consumes 1 soda and 1 coffee a day. No other recreational substance use. REVIEW OF SYSTEMS: A 12-point system review was performed, which was positive for recent history of chest pain and pressure, though none currently. Denies any shortness of breath. Denies any fever, chills, cough, sore throat, abdominal pain, nausea, vomiting, or issues moving his bowel or bladder. PHYSICAL EXAMINATION GENERAL: This is a well developed, though anxious gentleman seen resting in the bed, in no acute distress. VITAL SIGNS: 97.8 Fahrenheit, 63 pulse, 18 respirations, 96% oxygen on room air , and 134/86 blood pressure. HEENT: Conjunctivae pink and moist. PERRLA. EOMs intact. Oropharynx clear. Mucous membranes dry. Voice is whispery. NECK: Supple. RESPIRATORY: Lung sounds clear throughout bilaterally on room air. No accessory muscle use noted. CARDIAC: S1, S2 present. Heart rate regular. No murmurs, gallops, or rubs appreciated. No carotid bruits. ABDOMEN: Large, soft, nontender, nondistended with positive bowel sounds x4. MUSCULOSKELETAL: Able to move all extremities, 1+ nonpitting edema to left lower extremity, 2+ positive pedal pulses. NEURO: Sensation intact to light touch. No focal deficits appreciated. PSYCH: He is alert and oriented x4. Anxious, though thought content organized. SKIN: Intact without any rashes or lesions appreciated. DIAGNOSTIC STUDIES/LAB DATA: Stress echo as spoken about in HPI. Pertinent lab data: WBCs 8.7, hemoglobin 13.5, hematocrit 41, MCV is 96, MCH 32. Sodium 146, creatinine 1.74, glucose 210, AST 42, troponin 0.03, triglycerides 357, cholesterol 173, LDL cholesterol 77, HDL cholesterol 24.9, and lithium level 0.80. ASSESSMENT AND PLAN: My impression is this is a 64-year-old male with a past medical history significant for atrial fibrillation, bipolar, and hypertension, who is being admitted on 06/20/19 to undergo a cardiac catheterization 06/21/[address] Bhatia. 1. Chest pain. The patient already underwent a stress echo with Dr. Villegas today which had worrisome findings of ST elevation and hypo to akinesis after exercise in the inferior wall. He is to get a loading dose of Brilinta and aspirin this afternoon and then later tonight will start on twice a day 90 mg of Brilinta. Tomorrow, he will begin a baby aspirin. He will also be stated on a heparin drip per unstable angina protocol and to be transferred to [address] [place] [address] with telemetry monitoring. His HEART score is 8 which is equivalent to a 50% to 65% of major adverse cardiovascular event. He is allowed to have a consistent carb diet and then will be n.p.o. after midnight in preparation for his procedure. 2. Diabetes type 2. He does not normally take any medications at home and does not check his blood sugar as typically it has been stable, though his last hemoglobin A1c was in April which was elevated at 7.1 which the patient states is because he was drinking a lot of juice. Fingersticks will be done b.i.d. and providers to be notified if blood sugar goes below 60 or above 200. 3. Obstructive sleep apnea. He is to use his home CPAP or if that is not available to keep head of bed greater than 30 degrees and placed on nasal cannula. 4. Bipolar. He is to continue his lithium. [place] level was within normal range. 5. Atrial fibrillation. Due to the use of Brilinta, aspirin, and heparin drip , Xarelto is on hold for now. The patient did not take a beta-elaina at home. Will be started on 12.5 of metoprolol tartrate twice a day which is per recommendation of Dr. Bhatia. 6. Gastroesophageal reflux disease. He will be given pantoprazole daily while in hospital, though when he goes home he may continue his lansoprazole. 7. DVT prophylaxis. He will be receiving heparin drip as well as Brilinta twice a day. 8. Code status is full code. CONDITION: Guarded. DISPOSITION: Admit OBV to [address] [place] [address]. TIME SPENT: Time spent on the patient was about 60 minutes with 30 of that spent [id number]. Case was reviewed by my attending and they agree with the plan of care. SHADIA RUIZ, ED [id number]/[facility] #: [id number] ALBERTO
[2019-06-20 19:33] LABS: Troponin I 0.04 ng/mL (<0.03)
[2019-06-20] MEDS: Metoprolol Tartrate TAB* 25 MG PO SCH (20:56)
[2019-06-20] MEDS: Lithium Carbonate TAB* 300 MG PO SCH (20:57)
[2019-06-20] MEDS: Ticagrelor* 90 MG TAB PO SCH (22:07)
[2019-06-21] MEDS ORDERED: Melatonin 3 MG TAB PO PRN (03:00)
[2019-06-21 04:17] LABS: ABS Basophils 0.1 10^3/ul (0-0.2); ABS Eosinophils 0.2 10^3/ul (0-0.6); ABS Lymphocytes 1.8 10^3/ul (1.0-4.8); ABS Monocytes 0.5 10^3/ul (0-0.8); ABS Neutrophils 4.8 10^3/ul (1.5-7.7); Eosinophil % 2.5 %; Hematocrit 37 % (42-52); Hemoglobin 12.2 g/dL (14.0-18.0); Lymphocyte % 24.3 %; Mean Corpuscular HGB Conc 33 g/dL (31-36); Mean Corpuscular Hemoglobin 32 pg (27-31); Mean Corpuscular Volume 97 fL (80-94); Nucleated Red Blood Cells % 0.1; Platelet Count 160 10^3/uL (150-450); Red Blood Count 3.86 10^6 /uL (4.18-5.48); Red Cell Distribution Width 15 % (10-15); White Blood Count 7.4 10^3/uL (3.5-10.8)
[2019-06-21 04:31] LABS: BUN/Creatinine Ratio 11.9 (8-20); EGFR African American 44.5 (>60); EGFR Non-African American 36.8 (>60); Potassium 3.8 mmol/L (3.5-5.0)
[2019-06-21] MEDS: Metoprolol Tartrate TAB* 25 MG PO SCH ×2 (08:16→21:53)
[2019-06-21] MEDS: Aspirin 81 mg CHEW TAB* 81 MG TAB.CHEW PO SCH (08:16)
[2019-06-21] MEDS: Pantoprazole TAB * 40 MG TAB PO SCH (08:17)
[2019-06-21] MEDS: Ticagrelor* 90 MG TAB PO SCH (08:17)
[2019-06-21] MEDS: Acetylcysteine CAP (RENAL)* 600 MG PO SCH ×2 (08:17→21:53)
[2019-06-21] MEDS ORDERED: Ticagrelor* 90 MG TAB PO SCH (09:00)
[2019-06-21] MEDS: NS 0.9% 1000 ML** 1,000 ML IV SCH (09:27)
[2019-06-21 10:14] LABS: Folate 15.97 ng/mL (>3.99)
[2019-06-21] MEDS ORDERED: Iodixanol 320 (CONTRAST) 100 ML SDV ONE (12:52)
[2019-06-21] MEDS ORDERED: Lidocaine 1% INJ* 10 MG/ML 30 ML SDV ONE (12:52)
[2019-06-21] MEDS ORDERED: Heparin 2 UNITS/ML IVPREMIX* 2,000 ML IV ONE (12:52)
[2019-06-21] MEDS ORDERED: nitroGLYCERIN DRIP* 25,000 MCG/250 ML BTL ONE (12:55)
[2019-06-21] MEDS ORDERED: Heparin(*) 1000 UNIT/ML 10 ML VIAL CATH LAB IV ONE (12:55)
[2019-06-21] MEDS ORDERED: VERAPAMIL 2.5 MG/ML 2 ML VIAL ** 5 mg/2 ml ONE (12:55)
[2019-06-21] MEDS ORDERED: fentaNYL* 50 MCG/ML 2 ML VIAL (100 MCG VIAL) ONE (12:59)
[2019-06-21] MEDS ORDERED: Midazolam* 1 MG/ML 5 ML VIAL (5 MG) ONE (12:59)
[2019-06-21] MEDS ORDERED: NS 0.9% 1000 ML** 1,000 ML IV SCH (14:00)
--- NOTE | 2019-06-21 15:22 | CATH ---
CC: Dr. Sudha Villegas; Dr. Dale Marques, [facility]; Dr. Max Oseguera* CARDIAC CATHETERIZATION REPORT: DATE OF PROCEDURE: 06/21/19 INDICATION FOR PROCEDURE: Asked by Dr. Villegas to perform diagnostic coronary arteriography in this gentleman with a history of prior chest discomfort with bilateral arm discomfort, with abnormal EKG suggesting incomplete inferior wall myocardial infarction with markedly abnormal stress echo test suggesting severe proximal inferior hypo to akinesis as well as the development of severe lateral and distal anterolateral hypokinesis with exercise. PROCEDURE: Coronary arteriography. CONSENT: The patient was interviewed and examined on the floor of the hospital where the risks and benefits were explained. He understood them and wished to proceed. I did emphasize specifically in his case because of his significant renal insufficiency that he was at a high risk for acute renal insufficiency and acute renal failure. He understood this and wished to proceed. APPROACH: The right radial artery was assessed by ultrasound prior to coming to the cardiovascular laboratory and was found to be an acceptable size and as such this was the approach utilized. PRE-CARDIAC CATHETERIZATION LABORATORY RESULTS: Hemoglobin and hematocrit of 12.2 and 37 with a platelet count of 160,000. BUN and creatinine of 22 and 1.85 , sodium 146, potassium 3.8, chloride 113, bicarb 25. Troponin was 0.04. EQUIPMENT UTILIZED: 1. Right radial artery sheath was a 6-[place] Glidesheath Slender. 2. Diagnostic coronary catheters include a TIG4 5-[place] catheter and a FL 3.5 curve 5-[place] catheter. 3. Diagnostic guidewire was a 260 length Leyva guidewire. 4. The closure device utilized was a long Vasc Band. MEDICATIONS GIVEN: 1. The patient received a radial artery cocktail including 5000 units of heparin, 300 mcg of nitroglycerin, and 3 mg of verapamil. 2. 1% Xylocaine was used for local anesthesia. 3. The patient had already received this morning aspirin 81 mg and Brilinta 90 mg. 4. He received 1 mg of Versed intravenously in the electronic lab technician for sedation. DESCRIPTION OF PROCEDURE: The patient was brought to the cardiovascular laboratory where a formal time-out was performed. He was prepped and draped in sterile fashion, and under ultrasound guidance, the right radial artery was cannulated and the sheath was placed. Coronary arteriography was performed utilizing the diagnostic catheters, at the end of which the films were reviewed. The catheters and sheath were removed and hemostasis was obtained with a Vasc Band. The reverse [place]be[place] was a B. Of note, a 3 cc syringe was initially utilized to try to minimize total dye usage. The total contrast used was 80 cc of Visipaque dye. The radiation exposure included 5.9 minutes of fluoro time. The air kerma radiation was 1815 mGy. The DAP radiation was 9450 microgray per meter squared. RESULTS: CORONARY ARTERIOGRAPHY: A. Left coronary artery: 1. Left main - widely patent. 2. Left anterior descending artery. The left anterior descending artery traversed to the apical region. It gave off a bifurcating mid diagonal branch. The mid portion of the LAD was noted to have diffuse disease with narrowings as much as 65% to 70%. The proximal area showed tapering of a larger vessel with 55% to 60% narrowing. The mid to distal vessel had mild disease of 30% to 35%. The mid diagonal branch which bifurcated had a critical 90% proximal lesion seen, which appeared to be prior to the bifurcation. 3. Circumflex artery - a nondominant vessel supplying a thin first obtuse marginal branch. Past this point, there was a moderate to large size bifurcating obtuse marginal branch extending to the inferoposterior apical region, which had a hazy significant 75% to 80% obstruction that appeared to be perhaps a dissected area. Past that point, it did not show significant disease. B. Right coronary artery: The right coronary artery is a dominant vessel with diffuse disease seen throughout its mid to distal portion with narrowing just after a mid acute marginal branch of approximately 65% to 70% followed by subtotal occlusion of this vessel with either significant dissected area versus extensive clot present. There is faint filling to the distal vessel showing 2 posterior left ventricular branches (the posterior descending artery of the right coronary artery is seen via the left coronary artery collaterals, but unfortunately the PDA does not fill well back to the [place] vessel in order to determine whether or not there is widely patent connection between the PDA and the [place] right coronary artery). OVERALL ASSESSMENT: Significant multivessel disease as described above. Given these findings and the markedly abnormal stress test with left ventricular dilatation and decreased contractility and given the extent of the right coronary artery disease, I believe bypass surgery is probably the best option to the diagonal branch, distal LAD, obtuse marginal branch, and posterior descending artery and posterior LV branch of the right coronary artery. Of note, unfortunately, he does have renal insufficiency and at this point in time, we will recheck his BUN and creatinine tomorrow after hydration to see whether or not there has been significant compromise to it. We will discuss the option of transfer for bypass surgery with [facility] that this seems to be the preference of the family at this point of where they would want to go. Aggressive risk factor management as always will have to be pursued including weight reduction as well. I have personalluy spoken with Dr. Dale Marques at [facility] at . He has graciously accepted the patient for transfer , for tomorrow morning. He understands that thepatient's kidney function will need to be monitored for contrast induced worsening of his renal insufficiency. Also I explained to him that the patient did receive brilinta, and as such surgery will need to be delayed until it's effect wears off. The patient will be restarted in heparin tonight. I also discussed all of this with Katy Zhou MD the hospitalist managing the patient. [id number]/[facility] #: [id number] [facility]
[2019-06-21] MEDS ORDERED: Dextrose 50% Syringe 50 ML* 25 GM/50 ML SYRINGE IV PUSH PRN (17:18)
--- NOTE | 2019-06-21 17:19 | PN ---
Subjective Date of Service: 06/21/19 Interval History: Admitted after concerning stress echo, with cath today significant for multiple vessel disease. Interventionalist recommending transfer to higher level of care for bypass, and patient is accepted at [facility], to be transported tomorrow morning. Pt pleasant and in good spirits. Denies chest pain or SOB. Objective Active Medications: Acetylcysteine (Acetylcysteine Cap (Renal)*) 600 mg PO BID [facility] Stop: 06/22/19 21:01 Last Admin: 06/21/19 08:17 Dose: 600 mg Aspirin (Aspirin 81 Mg Chew Tab*) 81 mg PO DAILY [facility] Last Admin: 06/21/19 08:16 Dose: 81 mg Atorvastatin Calcium (Lipitor*) 80 mg PO 1700 [facility] Last Admin: 06/20/19 16:34 Dose: 80 mg Dextrose (D50w Syringe 50 Ml*) 12.5 gm IV PUSH .FOR FS < 60 - SS PRN PRN Reason: FS < 60 Heparin Sodium (Porcine) (Heparin Vial(*)) 0 units IV .PER PROTOCOL [facility] Last Admin: 06/20/19 22:19 Dose: 4,000 units Heparin Sodium/Dextrose (Heparin Drip 25,000 Units(*)) 25,000 units in 500 mls @ 0 mls/hr IV PER RATE [facility]; Protocol Last Admin: 06/20/19 15:34 Dose: 20 mls/hr Sodium Chloride (Ns 0.9% 1000 Ml) 1,000 mls @ 100 mls/hr IV .per rate [facility] Stop: 06/21/19 23:59 Last Admin: 06/21/19 14:00 Dose: 100 mls/hr Insulin Human Lispro (Humalog*) 0 units SUBCUT ACHS [facility]; Protocol [place] Carbonate (Enoree Carbonate Tab*) 1,200 mg PO QPM [facility] Last Admin: 06/20/19 20:57 Dose: 1,200 mg Melatonin (Melatonin) 3 mg PO BEDTIME PRN PRN Reason: INSOMNIA Last Admin: 06/21/19 03:00 Dose: 3 mg Metoprolol Tartrate (Lopressor Tab*) 12.5 mg PO Q12HR [facility] Last Admin: 06/21/19 08:16 Dose: 12.5 mg Pantoprazole Sodium (Protonix Tab*) 40 mg PO DAILY [facility] Last Admin: 06/21/19 08:17 Dose: 40 mg Vital Signs - 8 hr 06/21/19 06/21/19 06/21/19 11:15 14:01 14:02 Temperature 98.3 F Pulse Rate 50 47 51 Respiratory 20 18 18 Rate Blood Pressure 137/72 119/75 (mmHg) O2 Sat by Pulse 98 96 96 Oximetry 06/21/19 06/21/19 06/21/19 14:16 14:32 14:47 Temperature Pulse Rate 46 55 51 Respiratory 18 17 17 Rate Blood Pressure 146/69 157/74 141/76 (mmHg) O2 Sat by Pulse 95 96 98 Oximetry 06/21/19 06/21/19 06/21/19 15:00 15:02 15:16 Temperature Pulse Rate 72 60 60 Respiratory 25 19 17 Rate Blood Pressure 148/60 112/72 (mmHg) O2 Sat by Pulse 97 98 97 Oximetry 06/21/19 06/21/19 06/21/19 15:31 15:45 16:00 Temperature 98.2 F Pulse Rate 50 51 Respiratory 19 22 Rate Blood Pressure 120/68 131/65 (mmHg) O2 Sat by Pulse 100 95 Oximetry 06/21/19 06/21/19 16:25 16:28 Temperature Pulse Rate 51 54 Respiratory Rate Blood Pressure 134/71 161/142 (mmHg) O2 Sat by Pulse 97 96 Oximetry Oxygen Devices in Use Now: None Appearance: well appearing jovial man in NAD Eyes: No Scleral Icterus Ears/Nose/Mouth/Throat: Clear Oropharnyx, Mucous Membranes Moist Neck: NL Appearance and Movements; NL JVP, Trachea Midline Respiratory: Symmetrical Chest Expansion and Respiratory Effort, Clear to Auscultation Cardiovascular: NL Sounds; No Murmurs; No JVD, RRR Abdominal: NL Sounds; No Tenderness; No Distention, No Hepatosplenomegaly, - - protuberant Extremities: No Edema Skin: No Rash or Ulcers Neurological: Alert and Oriented x 3 Result Diagrams: 06/21/19 04:09 06/21/19 04:09 Assess/Plan/Problems-Billing Assessment: 64M with DM2, HTN, CKD, afib on Xarelto, bipolar disorder, LILY on CPAP, admitted after markedly abnormal stress echo, with diagnostic cath showing multiple vessel disease. - Patient Problems (1) Multiple vessel coronary artery disease Comment: Seen on catheterization 06/20, after severely abnormal stress echo. - cont 4 doses of NAC ordered by cards for renal disease - appreciate interventionalist recs - accepted at [facility] by Dale Marques (CT surgery); to transfer 06/21 - cont aspirin and heparin gtt - cont atorvastatin 80mg nightly - started on metoprolol tartrate 12.5 q12h (2) Diabetes mellitus type 2 in obese Comment: Was not on meds at home. - f/u A1c - initiate insulin lispro sliding scale (3) Atrial fibrillation Comment: Was on Xarelto on home, without rate control agent. - now on heparin drip and beta-elaina for CAD (4) HTN (hypertension) Comment: BPs largely at goal here. Was not on meds at home. (5) LILY (obstructive sleep apnea) Comment: - cont home CPAP (6) Bipolar disorder Comment: - cont home lithium (7) GERD (gastroesophageal reflux disease) Comment: - cont home PPI (8) DVT prophylaxis Comment: on hep gtt for multiple vessel disease (9) Full code status Current Visit: Yes Status: Acute Code(s): Z78.9 - OTHER SPECIFIED HEALTH STATUS SNOMED Code(s): 506885959
[2019-06-21] MEDS: Atorvastatin* 80 MG TAB PO SCH (17:39)
[2019-06-21] MEDS: Lithium Carbonate TAB* 300 MG PO SCH (17:39)
[2019-06-21] MEDS ORDERED: Insulin LISPRO* 1 UNITS UNIT SUBCUT SCH (18:00)
[2019-06-21] MEDS: Insulin LISPRO* 1 UNITS UNIT SUBCUT SCH ×2 (18:07→21:54)
--- NOTE | 2019-06-21 20:28 | DS ---
CC: Max Oseguera MD * DISCHARGE/TRANSFER SUMMARY: DATE OF ADMISSION: 06/20/19 DATE OF DISCHARGE: 06/22/19 PRIMARY CARE PHYSICIAN: Max Oseguera MD PRIMARY DIAGNOSES: 1. Significant multivessel coronary artery disease. 2. Uncontrolled diabetes mellitus. SECONDARY DIAGNOSES: 1. Chronic kidney disease. 2. Atrial fibrillation. 3. Bipolar disorder. 4. Obstructive sleep apnea, on CPAP. 5. Gastroesophageal reflux disease. 6. Obesity. CONSULTATIONS: Dr. Marcos Bhatia of Interventional Radiology. PROCEDURES: 1. Stress echocardiogram on 06/20/19. 2. Diagnostic cardiac catheterization on 06/21/19. MEDICATIONS ON TRANSFER: 1. Heparin drip continuous. 2. Aspirin 81 mg daily. 3. Atorvastatin 80 mg in the evening. 4. Metoprolol tartrate 12.5 mg every 12 hours. 5. Acetylcysteine 600 mg capsule b.i.d. for one more day. 6. Lansoprazole 30 mg daily. 7. [place] 1200 mg in the evening. 8. Melatonin 3 mg at bedtime. 9. Insulin lispro sliding scale a.c. and h.s. HISTORY OF PRESENT ILLNESS: Mr. Sims is a 64-year-old man with diabetes; hypertension; CKD; AFib, on Xarelto; bipolar disorder; LILY, on CPAP, who is admitted after a stress echocardiogram due to significant abnormalities on that test. Mr. Sims was referred for this echocardiogram for ongoing chest pressure and the sensation of someone sitting on his chest, which radiated to his left hand. The patient notes that he stopped all of his home medications approximately 1 month ago due to nausea and vomiting. On day of admission, he underwent a stress echocardiogram and demonstrated poor exercise ability and was unable to reach target heart rate. His resting EKG showed small inferior Qs with inverted T waves in inferolateral leads and with exercise, he had ST elevation in inferior leads. His resting echo showed a fixed defect in the posterior wall at the very base. After exercise, the entire inferior wall became severely hypo to akinetic and chamber dilated in the 2-chamber view. The patient did not have recurrence of chest pressure or the sensation of someone sitting on his chest. He did experience some left arm pain that seemed to be more related to the blood pressure cuff and the stress test. Post exercise, the patient felt normal and was hungry and wanted to eat; however, given abnormalities, Dr. Marcos Bhatia of Interventional Radiology was asked to perform a diagnostic coronary arteriography. So, the patient was admitted to the hospitalist service with plan for catheterization in the next day. The next day, the patient underwent cardiac catheterization, which was significant for multivessel disease. The mid portion of the LAD was noted to have diffuse disease with narrowing as much as 65% to 70%. The proximal area showed tapering of the larger vessel with 55% to 60% narrowing. The mid to distal vessel had mild disease of 30% to 35%. The mid diagonal branch, which bifurcated, had a critical 90% proximal lesion, which appeared to be prior to the bifurcation. The circumflex artery had a nondominant vessel supplying a thin first obtuse marginal branch and past this point, there was a moderate-to- large size bifurcating obtuse marginal branch extending into the mid inferoposterior apical region, which had a hazy significant 75% to 80% obstruction that appeared to be perhaps a dissected area just after a mid acute marginal branch of the RCA that was approximately 65% to 70% lesion followed by a subtotal occlusion of this vessel with either significant dissecting area versus extensive clot present. Given these findings and the markedly abnormal stress test with LV dilatation and decreased contractility, it was recommended that the patient undergo bypass surgery. Dr. Bhatia spoke with Dr. Dale Marques at [facility] in [facility] and the patient was accepted for transfer for likely bypass. The patient does have renal insufficiency. He was given fluids after the procedure with n- acetylcysteine with close monitoring of his renal function. Of note, the patient did receive ticagrelor 180 mg on 06/20/19 in the afternoon and then on 06/20/19 at night and 06/21/19 in the morning, he received doses of 90 mg. After the cardiac catheterization, the patient without chest pain and had strong appetite. PERTINENT DIAGNOSTIC STUDIES/LAB DATA: CBC notable for mild anemia around 13, which appears to be the patient's baseline with MCV 97. BMP significant for very mild hypernatremia to 146 with creatinine in the upper ones with prior baseline likely around 1.6. Troponin peaked at 0.04, triglycerides 356 with LDL 77 and HDL 25. Vitamin B12 of 319 with folate 16. A1c is currently pending, but the patient's blood glucoses have consistently been about 200. DISCHARGE PLAN: For the patient's coronary artery disease significant in multiple vessels, he will be transferred to [facility] for cardiothoracic surgery. He was accepted by Dr. Dale Marques. He will be maintained on a heparin drip and continued on aspirin, atorvastatin, and metoprolol. His last dose of Brilinta was 90 mg on the morning of 06/21/19. For diabetes, his A1c is currently pending. He should be maintained on an insulin sliding scale and will likely need home oral medication on discharge. For atrial fibrillation, again the patient was discharged on a heparin drip. He was previously on Xarelto. For LILY, he will be continued on CPAP. For bipolar disorder, continue home lithium dose at 1200 mg nightly. DIET: Heart healthy diabetic diet. DISPOSITION: To [facility]. CONDITION: Stable. TIME SPENT: Approximately 60 minutes was spent on transfer of this patient, more than half of which was spent on care coordination at bedside, interview and exam. [id number]/[facility] #: [id number] [place]
[2019-06-21] MEDS: Heparin DRIP 25,000 UNITS(*) 25,000 UNITS/500 ML BAG IV SCH (22:31)
[2019-06-21] MEDS ORDERED: Acetaminophen TAB* 325 MG PO PRN (22:48)
[2019-06-21] MEDS: Heparin VIAL(*) 5000 UNITS/ML VIAL (FIVE THOUSAND) IV SCH (22:58)
[2019-06-22 05:44] LABS: ABS Basophils 0.1 10^3/ul (0-0.2); ABS Eosinophils 0.2 10^3/ul (0-0.6); ABS Lymphocytes 1.8 10^3/ul (1.0-4.8); ABS Monocytes 0.5 10^3/ul (0-0.8); ABS Neutrophils 4.7 10^3/ul (1.5-7.7); Eosinophil % 3.3 %; Hematocrit 41 % (42-52); Hemoglobin 13.2 g/dL (14.0-18.0); Lymphocyte % 24.5 %; Mean Corpuscular HGB Conc 33 g/dL (31-36); Mean Corpuscular Hemoglobin 32 pg (27-31); Mean Corpuscular Volume 97 fL (80-94); Mean Platelet Volume 8.7 fL (7.4-10.4); Platelet Count 173 10^3/uL (150-450); Red Blood Count 4.18 10^6 /uL (4.18-5.48); Red Cell Distribution Width 15 % (10-15); White Blood Count 7.3 10^3/uL (3.5-10.8)
[2019-06-22 06:00] LABS: BUN/Creatinine Ratio 9.8 (8-20); Calcium 9.2 mg/dL (8.6-10.3); EGFR Non-African American 37.2 (>60); Potassium 3.7 mmol/L (3.5-5.0)
[2019-06-22] MEDS: Heparin VIAL(*) 5000 UNITS/ML VIAL (FIVE THOUSAND) IV SCH (06:00)
[2019-06-22 07:51] VITALS: BP 132/71
[2019-06-22] MEDS: Insulin LISPRO* 1 UNITS UNIT SUBCUT SCH (08:03)
[2019-06-22] MEDS: Aspirin 81 mg CHEW TAB* 81 MG TAB.CHEW PO SCH (08:03)
[2019-06-22] MEDS: Acetylcysteine CAP (RENAL)* 600 MG PO SCH (08:03)
[2019-06-22] MEDS: Metoprolol Tartrate TAB* 25 MG PO SCH (08:04)
[2019-06-22] MEDS: Pantoprazole TAB * 40 MG TAB PO SCH (08:04)
== END 2019-06-22 12:45 | disposition short-term general hospital (02) ==
LOC: CHICARD 09:05 → MEDTELE 13:30
PROVIDERS: ADMIT Specialist; ATTEND Specialist
DX: I25.10 Atherosclerotic heart disease of native coronary artery without angina pectoris (principal); I48.91 Unspecified atrial fibrillation; I12.9 Hypertensive chronic kidney disease with stage 1 through stage 4 chronic kidney disease, or unspecified chronic kidney disease; E11.22 Type 2 diabetes mellitus with diabetic chronic kidney disease; R07.9 Chest pain, unspecified; R06.02 Shortness of breath; M48.00 Spinal stenosis, site unspecified; N18.9 Chronic kidney disease, unspecified; K21.9 Gastro-esophageal reflux disease without esophagitis; E66.9 Obesity, unspecified; F31.9 Bipolar disorder, unspecified; G47.33 Obstructive sleep apnea (adult) (pediatric); Z79.4 Long term (current) use of insulin; Z79.82 Long term (current) use of aspirin; Z79.01 Long term (current) use of anticoagulants; Z79.899 Other long term (current) drug therapy; R94.39 Abnormal result of other cardiovascular function study
CPT/HCPCS: 36415; 76937; 80048; 80053; 80061; 80178; 82607; 82746; 83036; 84484; 85025; 85347; 85610; 85730; 93005; 93351; 93352; 93454; 96360; 96361; 96372; 99156; 99157; A9270-GY; C8930; G0378; J1644; J2250; J3010

== ENCOUNTER 2020-01-30 13:29 | Inpatient (IN) ==
[2020-01-30] MEDS ORDERED: cefTRIAXone 1 gm/50 mL NS BAG 1 GM/50 ML BAG IV ONE (13:58)
[2020-01-30] MEDS ORDERED: NS 0.9% 1000 ml BAG 1,000 ML IV ONE ×3 (13:58→16:40)
[2020-01-30 14:36] LABS: ABS Lymphocytes 0.4 10^3/ul (1.0-4.8); ABS Monocytes 0.1 10^3/ul (0-0.8); ABS Neutrophils 5.8 10^3/ul (1.5-7.7); Eosinophil % 0.6 %; Hematocrit 35 % (42-52); Hemoglobin 11.2 g/dL (14.0-18.0); Lymphocyte % 5.8 %; Mean Corpuscular HGB Conc 32 g/dL (31-36); Mean Corpuscular Hemoglobin 29 pg (27-31); Mean Corpuscular Volume 91 fL (80-94); Mean Platelet Volume 8.7 fL (7.4-10.4); Platelet Count 142 10^3/uL (150-450); Red Blood Count 3.88 10^6 /uL (4.18-5.48); Red Cell Distribution Width 19 % (10-15); White Blood Count 6.4 10^3/uL (3.5-10.8)
[2020-01-30 14:44] LABS: INR 1.32 (0.82-1.09)
[2020-01-30 14:56] LABS: Troponin I 0.03 ng/mL (<0.03)
[2020-01-30 15:09] LABS: Urine Appearance Clear; Urine Bilirubin Negative (Negative); Urine Blood 2+ (Negative); Urine Color Straw; Urine Glucose 2+(150 mg/dL) (Negative); Urine Ketones Negative (Negative); Urine Nitrite Negative (Negative); Urine Protein 1+(30 mg/dL) (Negative); Urine Specific Gravity 1.008 (1.010-1.030); Urine Urobilinogen Negative (Negative)
[2020-01-30 15:14] LABS: ALT 21 U/L (7-52); AST 28 U/L (13-39); Albumin 3.8 g/dL (3.2-5.2); Albumin/Globulin Ratio 1.1 (1-3); Alkaline Phosphatase 75 U/L (34-104); Anion Gap 12 mmol/L (2-11); BUN/Creatinine Ratio 11.3 (8-20); Blood Urea Nitrogen 18 mg/dL (6-24); CO2 Carbon Dioxide 23 mmol/L (22-32); Calcium 9.1 mg/dL (8.6-10.3); Chloride 110 mmol/L (101-111); Creatine Kinase 38 U/L (10-223); EGFR Non-African American 43.8 (>60); Globulin 3.5 g/dL (2-4); Glucose 275 mg/dL (70-100); Magnesium 1.9 mg/dL (1.9-2.7); Sodium 145 mmol/L (135-145); Total Protein 7.3 g/dL (6.4-8.9)
[2020-01-30 15:18] LABS: Urine Bacteria Absent (Absent); Urine Red Blood Cell Trace(0-2/hpf) (Absent); Urine White Blood Cell Trace(0-5/hpf) (Absent)
[2020-01-30 15:26] LABS: Acetaminophen < 15 mcg/mL; Alcohol, S < 10 mg/dL (<10); Lithium < 0.10 mmol/L (0.6-1.2); Salicylate < 2.50 mg/dL (<30)
[2020-01-30 15:26] LABS: Urine Benzodiazepine Screen None Detected (None Detect); Urine Cannabinoids Screen None Detected (None Detect); Urine Opiates Screen None Detected (None Detect)
[2020-01-30 15:39] LABS: TSH Ultra Thyroid Stim Horm 0.38 mcIU/mL (0.34-5.60)
[2020-01-30] MEDS: Nystatin TOP POWDER 15 GM BTL TOPICAL SCH (23:34)
[2020-01-30] MEDS: Latanoprost 0.005% 2.5 ml BTL BOTH EYES SCH (23:34)
[2020-01-30] MEDS: Acetylcysteine 600mgCAP(RENAL) PO SCH (23:35)
[2020-01-31 07:41] LABS: Hematocrit 28 % (42-52); Mean Corpuscular HGB Conc 32 g/dL (31-36); Mean Corpuscular Hemoglobin 29 pg (27-31); Mean Corpuscular Volume 90 fL (80-94); Mean Platelet Volume 8.9 fL (7.4-10.4); Platelet Count 107 10^3/uL (150-450); Red Blood Count 3.13 10^6 /uL (4.18-5.48); Red Cell Distribution Width 19 % (10-15); White Blood Count 5.3 10^3/uL (3.5-10.8)
[2020-01-31 08:02] LABS: BUN/Creatinine Ratio 10.7 (8-20); EGFR African American 46.8 (>60); EGFR Non-African American 38.7 (>60); Potassium 3.6 mmol/L (3.5-5.0)
[2020-01-31 08:46] LABS: ABS Eosinophils 0.1 10^3/ul (0-0.6); ABS Lymphocytes 1.2 10^3/ul (1.0-4.8); ABS Monocytes 0.6 10^3/ul (0-0.8); ABS Neutrophils 3.4 10^3/ul (1.5-7.7); Eosinophil % 1.7 %; Lymphocyte % 22.7 %
[2020-01-31] MEDS ORDERED: Aspirin EC 81 mg TAB.EC (enteric coated) PO SCH (09:00)
[2020-01-31] MEDS: Acetylcysteine 600mgCAP(RENAL) PO SCH ×2 (09:31→19:38)
[2020-01-31] MEDS: Nystatin TOP POWDER 15 GM BTL TOPICAL SCH ×3 (09:32→19:45)
[2020-01-31] MEDS: cefTRIAXone 1 gm/50 mL NS BAG 1 GM/50 ML BAG IVPB SCH (15:41)
[2020-01-31] MEDS: Latanoprost 0.005% 2.5 ml BTL BOTH EYES SCH (18:18)
[2020-02-01 06:17] LABS: Hematocrit 31 % (42-52); Mean Corpuscular HGB Conc 32 g/dL (31-36); Mean Corpuscular Hemoglobin 29 pg (27-31); Mean Corpuscular Volume 89 fL (80-94); Mean Platelet Volume 8.2 fL (7.4-10.4); Platelet Count 126 10^3/uL (150-450); Red Blood Count 3.48 10^6 /uL (4.18-5.48); Red Cell Distribution Width 19 % (10-15)
[2020-02-01 06:43] LABS: Calcium 8.7 mg/dL (8.6-10.3); EGFR African American 51.5 (>60); EGFR Non-African American 42.5 (>60); Potassium 3.8 mmol/L (3.5-5.0)
[2020-02-01 07:02] LABS: ABS Eosinophils 0.1 10^3/ul (0-0.6); ABS Lymphocytes 1.1 10^3/ul (1.0-4.8); ABS Monocytes 0.5 10^3/ul (0-0.8); ABS Neutrophils 3.3 10^3/ul (1.5-7.7); Eosinophil % 2.2 %; Lymphocyte % 21.8 %
[2020-02-01] MEDS: Acetylcysteine 600mgCAP(RENAL) PO SCH (08:42)
[2020-02-01] MEDS: Nystatin TOP POWDER 15 GM BTL TOPICAL SCH ×2 (08:43→14:46)
[2020-02-01 15:32] VITALS: BP 147/73
[2020-02-01] MEDS: cefTRIAXone 1 gm/50 mL NS BAG 1 GM/50 ML BAG IVPB SCH (15:44)
== END 2020-02-01 17:10 | disposition home or self-care (01) | DRG 872 ==
LOC: ED 13:29 → MED 17:26
PROVIDERS: ADMIT Student in an Organized Health Care Education/Training Program; ATTEND Internal Medicine

== ENCOUNTER 2021-05-30 15:11 | Observation (INO) ==
[2021-05-30 16:04] LABS: Hematocrit 37 % (42-52); Hemoglobin 12.6 g/dL (14.0-18.0); Mean Corpuscular HGB Conc 34 g/dL (31-36); Mean Corpuscular Hemoglobin 32 pg (27-31); Mean Corpuscular Volume 93 fL (80-94); Mean Platelet Volume 8.1 fL (7.4-10.4); Platelet Count 126 10^3/uL (150-450); Red Cell Distribution Width 17 % (10-15); White Blood Count 4.4 10^3/uL (3.5-10.8)
[2021-05-30 16:10] LABS: INR 1.2 (0.86-1.15)
[2021-05-30 16:24] LABS: Troponin I 0.05 ng/mL (<0.03)
[2021-05-30 16:32] LABS: Anisocytosis 1+
[2021-05-30 16:33] LABS: ABS Eosinophils 0.1 10^3/ul (0-0.6); ABS Lymphocytes 1.2 10^3/ul (1.0-4.8); ABS Monocytes 0.6 10^3/ul (0-0.8); ABS Neutrophils 2.4 10^3/ul (1.5-7.7); Eosinophil % 1.3 %; Lymphocyte % 27.8 %; Nucleated Red Blood Cells % 0.2
[2021-05-30 16:38] LABS: Sodium 139 mmol/L (135-145)
[2021-05-30 16:39] LABS: ALT 17 U/L (7-52); AST 20 U/L (13-39); Albumin 4.2 g/dL (3.2-5.2); Albumin/Globulin Ratio 1.7 (1-3); Alkaline Phosphatase 46 U/L (35-149); Anion Gap 9 mmol/L (2-11); Blood Urea Nitrogen 27 mg/dL (6-24); CO2 Carbon Dioxide 27 mmol/L (22-32); Calcium 9.2 mg/dL (8.6-10.3); Chloride 103 mmol/L (101-111); Globulin 2.5 g/dL (2-4); Glucose 153 mg/dL (70-100); Potassium 3.9 mmol/L (3.5-5.0); Total Protein 6.7 g/dL (6.4-8.9); eGFR CKD-EPI 43.3 (>60)
[2021-05-30 18:50] LABS: Troponin I 0.05 ng/mL (<0.03)
[2021-05-30 22:12] LABS: Troponin I 0.06 ng/mL (<0.03)
[2021-05-31 05:24] LABS: ABS Eosinophils 0.1 10^3/ul (0-0.6); ABS Lymphocytes 1.2 10^3/ul (1.0-4.8); ABS Monocytes 0.5 10^3/ul (0-0.8); ABS Neutrophils 2.1 10^3/ul (1.5-7.7); Eosinophil % 1.4 %; Hematocrit 35 % (42-52); Lymphocyte % 31.7 %; Mean Corpuscular HGB Conc 34 g/dL (31-36); Mean Corpuscular Hemoglobin 31 pg (27-31); Mean Corpuscular Volume 92 fL (80-94); Mean Platelet Volume 7.7 fL (7.4-10.4); Platelet Count 120 10^3/uL (150-450); Red Blood Count 3.83 10^6 /uL (4.18-5.48); Red Cell Distribution Width 16 % (10-15); White Blood Count 3.9 10^3/uL (3.5-10.8)
[2021-05-31 05:57] LABS: Calcium 8.2 mg/dL (8.6-10.3); HDL Cholesterol 21.1 mg/dL; Magnesium 2.1 mg/dL (1.9-2.7); Potassium 3.5 mmol/L (3.5-5.0); eGFR CKD-EPI 49.1 (>60)
[2021-05-31 11:31] LABS: Troponin I 0.05 ng/mL (<0.03)
[2021-05-31] MEDS ORDERED: Albuterol HFA INHALER 8 gm MDI INH PRN (12:08)
[2021-05-31] MEDS: Latanoprost 0.005% 2.5 ml BTL BOTH EYES SCH ×2 (12:18→21:05)
[2021-05-31] MEDS: Aspirin EC 81 mg TAB.EC (enteric coated) PO SCH (13:20)
[2021-05-31] MEDS ORDERED: Perflutren Lipid Microsphere 3 ML VIAL ONE (16:22)
[2021-06-01 05:52] LABS: ABS Eosinophils 0.2 10^3/ul (0-0.6); ABS Lymphocytes 1.7 10^3/ul (1.0-4.8); ABS Monocytes 0.4 10^3/ul (0-0.8); ABS Neutrophils 1.9 10^3/ul (1.5-7.7); Eosinophil % 4.2 %; Hematocrit 38 % (42-52); Hemoglobin 12.6 g/dL (14.0-18.0); Lymphocyte % 40.9 %; Mean Corpuscular HGB Conc 33 g/dL (31-36); Mean Corpuscular Hemoglobin 31 pg (27-31); Mean Corpuscular Volume 94 fL (80-94); Mean Platelet Volume 8.2 fL (7.4-10.4); Platelet Count 132 10^3/uL (150-450); Red Blood Count 4.08 10^6 /uL (4.18-5.48); Red Cell Distribution Width 17 % (10-15); White Blood Count 4.3 10^3/uL (3.5-10.8)
[2021-06-01 06:14] LABS: Calcium 8.5 mg/dL (8.6-10.3); Magnesium 2.2 mg/dL (1.9-2.7); Potassium 3.8 mmol/L (3.5-5.0); eGFR CKD-EPI 40.5 (>60)
[2021-06-01] MEDS: Aspirin EC 81 mg TAB.EC (enteric coated) PO SCH (08:20)
[2021-06-01 17:07] VITALS: BP 116/60
== END 2021-06-01 16:04 | disposition home or self-care (01) ==
LOC: ED 15:11 → EDHOLD 15:11 → SUATTDRO 20:16 → EDHOLD 05-31 10:47 → MEDTELE 05-31 10:51
PROVIDERS: ADMIT Student in an Organized Health Care Education/Training Program; ATTEND Internal Medicine

== ENCOUNTER 2023-07-11 16:05 | Observation (INO) ==
[2023-07-11] MEDS: Piperacillin/Tazobac 3.375 BAG 3.375 GM/100 ML BAG IV ONE (17:12)
[2023-07-11] MEDS: Acetaminophen IV 1 GM/100ML 1,000 MG/100 ML BAG IV ONE (17:12)
[2023-07-11] MEDS: Lactated Ringers 1000 ml BAG 1,000 ML IV SCH (17:15)
[2023-07-11 17:21] LABS: ABS Basophils 0.1 10^3/uL (0.0-0.1); ABS Lymphocytes 1.1 10^3/uL (1.0-4.8); ABS Monocytes 0.8 10^3/uL (0.0-1.1); ABS Neutrophils 8.3 10^3/uL (1.5-7.6); ABS Nucleated RBC 0.01 10^3/ul; Eosinophil % 0.4 %; Hematocrit 39.1 % (38-53); Hemoglobin 13.9 g/dL (13.2-16.3); Lymphocyte % 10.3 %; Mean Corpuscular Hemoglobin 33.2 pg (27-33); Mean Corpuscular Hgb Conc 35.7 g/dL (31-36); Platelet Count 193 10^3/uL (150-450); Red Cell Distribution Width 16.1 % (12-17); White Blood Count 10.4 10^3/uL (3.6-10.2)
[2023-07-11 17:31] LABS: Activated Partial Thrombo Time 34.9 seconds (26.0-38.0); INR 1.17 (0.83-1.13)
[2023-07-11 17:53] LABS: Albumin 4.4 g/dL (3.2-5.2); Albumin/Globulin Ratio 1.5 (1-3); C Reactive Protein 20.42 mg/L (<8.01); Calcium 9.8 mg/dL (8.6-10.3); Creatinine, Serum 1.65 mg/dL (0.67-1.17); Globulin 2.9 g/dL (2-4); Potassium 3.8 mmol/L (3.5-5.0); Total Bilirubin 0.5 mg/dL (0.2-1.0); Total Protein 7.3 g/dL (6.4-8.9); eGFR CKD-EPI 44.4 (>60)
[2023-07-11 17:59] LABS: Urine Appearance Clear; Urine Bilirubin Negative (Negative); Urine Blood 3+ (Negative); Urine Color Colorless; Urine Glucose 3+ (>=300 mg/dL) (Negative); Urine Ketones Negative (Negative); Urine Nitrite Negative (Negative); Urine Protein Trace (Negative); Urine Specific Gravity 1.005 (1.002-1.030); Urine Urobilinogen Negative (Negative); Urine pH 6.5 (5.0-8.0)
[2023-07-11 18:06] LABS: TSH Ultra Thyroid Stim Horm 0.42 mcIU/mL (0.34-5.60)
[2023-07-11 18:36] LABS: Urine Bacteria 2+ /HPF (Absent); Urine Red Blood Cell Trace(0-2/hpf) /HPF (0-Trace); Urine White Blood Cell Trace(0-5/hpf) /HPF (0-Trace)
[2023-07-11 18:54] LABS: High Sensitivity Troponin 1 Hr 20 pg/mL (<20)
[2023-07-11] MEDS: Vancomycin 1,750 MG in NS 0.9% 500 ml BAG 500 ML IVPB ONE (18:56)
[2023-07-11] MEDS: Iodixanol (CONTRAST) 320 MG/ML 100 ML SDV IV ONE (20:56)
[2023-07-11] MEDS: Lactated Ringers 1000 ml BAG 1,000 ML IV ONE (23:49)
[2023-07-12 00:53] LABS: Hematocrit 36.6 % (38-53); Hemoglobin 12.4 g/dL (13.2-16.3)
[2023-07-12] MEDS: cefTRIAXone 1 gm/50 mL D5W 1 GM/50 ML BAG IV SCH (04:51)
[2023-07-12 04:53] LABS: ABS Basophils 0.1 10^3/uL (0.0-0.1); ABS Monocytes 0.7 10^3/uL (0.0-1.1); ABS Neutrophils 5.6 10^3/uL (1.5-7.6); ABS Nucleated RBC 0.01 10^3/ul; Eosinophil % 0.5 %; Hematocrit 36.5 % (38-53); Hemoglobin 12.6 g/dL (13.2-16.3); Lymphocyte % 13.3 %; Mean Corpuscular Hemoglobin 32.2 pg (27-33); Mean Corpuscular Hgb Conc 34.5 g/dL (31-36); Mean Corpuscular Volume 93.3 fL (80-97); Mean Platelet Volume 7.8 fL (7.5-11.2); Nucleated Red Blood Cells % 0.1 %/100WBC (0.0-0.8); Platelet Count 161 10^3/uL (150-450); Red Blood Count 3.91 10^6/uL (4.06-5.63); White Blood Count 7.4 10^3/uL (3.6-10.2)
[2023-07-12 05:27] LABS: Calcium 9.4 mg/dL (8.6-10.3); Creatinine, Serum 1.69 mg/dL (0.67-1.17); Potassium 3.8 mmol/L (3.5-5.0); eGFR CKD-EPI 43.1 (>60)
[2023-07-12] MEDS: Aspirin EC 81 mg TAB.EC (enteric coated) PO SCH (08:15)
[2023-07-12] MEDS: Empagliflozin 25 MG TAB PO SCH (08:16)
[2023-07-12] MEDS: CMCS: Mirabegron 25 mg ER TAB (NF) PO SCH (08:16)
[2023-07-12] MEDS: CMCS: Dorzolamide/Timolol OPTH (NF) 10 ML BOT BOTH EYES SCH (08:17)
[2023-07-12] MEDS: NF: ICOSAPENT ETHYL 1 GM CAPSULE (NF) PO SCH (08:18)
[2023-07-12] MEDS ORDERED: Senna TAB 8.6 mg TAB PO PRN (18:33)
[2023-07-12] MEDS ORDERED: Magnesium Hydroxide LIQ 30 ML UDC PO PRN (18:33)
[2023-07-12] MEDS ORDERED: Polyethylene Glycol 3350 17 GM PACKET PO PRN (18:33)
[2023-07-12] MEDS: Magnesium Hydroxide LIQ 30 ML UDC PO SCH (21:12)
[2023-07-12] MEDS: Latanoprost 0.005% 2.5 ml BTL BOTH EYES SCH (23:30)
[2023-07-13] MEDS: cefTRIAXone 1 gm/50 mL D5W 1 GM/50 ML BAG IV SCH (05:56)
[2023-07-13 06:29] LABS: ABS Basophils 0.1 10^3/uL (0.0-0.1); ABS Eosinophils 0.2 10^3/uL (0.0-0.5); ABS Lymphocytes 1.3 10^3/uL (1.0-4.8); ABS Monocytes 0.6 10^3/uL (0.0-1.1); ABS Neutrophils 4.9 10^3/uL (1.5-7.6); ABS Nucleated RBC 0.01 10^3/ul; Eosinophil % 2.3 %; Hematocrit 35.7 % (38-53); Hemoglobin 12.3 g/dL (13.2-16.3); Mean Corpuscular Hemoglobin 32.3 pg (27-33); Mean Corpuscular Hgb Conc 34.5 g/dL (31-36); Mean Corpuscular Volume 93.8 fL (80-97); Mean Platelet Volume 8.2 fL (7.5-11.2); Nucleated Red Blood Cells % 0.2 %/100WBC (0.0-0.8); Platelet Count 158 10^3/uL (150-450); Red Cell Distribution Width 15.9 % (12-17)
[2023-07-13 06:50] LABS: Calcium 8.9 mg/dL (8.6-10.3); Creatinine, Serum 1.65 mg/dL (0.67-1.17); Potassium 3.5 mmol/L (3.5-5.0); eGFR CKD-EPI 44.4 (>60)
[2023-07-16 18:26] LABS: Rapid COVID-19 Molecular Undetected (Undetected)
[2023-07-17 10:20] VITALS: BP 166/98
== END 2023-07-17 12:00 ==
LOC: ED 16:05 → EDHOLD 16:05 → SUATTDRO 23:00 → MED 07-12 12:13
PROVIDERS: ADMIT Hospitalist; ATTEND Internal Medicine

== ENCOUNTER 2023-09-18 07:24 | Observation (INO) ==
[~2023-09-18 07:24] MED LIST changes: -Buffered Lidocaine 1% SYRIN* 3 ML/SYR SYRINGE INTRADERM ONE; -Bupivacaine 0.25% EPI 200,000* 30 ML SDV ONE; -Famotidine IV* 10 MG/ML 2 ML (20 mg) IV ONE; -Famotidine IV* 10 MG/ML 2 ML (20 mg) ONE; -HYDROcodone/ACETAMIN 5-325 MG* 1 TAB PO PRN; -Lidocaine 1% MPF wEPI 200,000* 30 ML SDV ONE; -Lidocaine 2% PF* 5 ML VIAL ONE; -Midazolam* 1 MG/ML 5 ML VIAL (5 MG) ONE; -Mineral Oil Sterile, TOPICAL* 25 ML BTL ONE; +Naloxone 0.4 mg VIAL 0.4 mg/ml 1 ml VIAL IV PRN; +Ondansetron 4 mg VIAL 2 MG/ML 2 ml VIAL IV PRN; -PROCHLORPERAZINE INJ 5 MG/ML 2 ML VIAL IV PRN; -Propofol* 10 MG/ML 20 ML BTL IV PUSH ONE; -ceFAZolin 2 GM PREMIX(*) 2 GM/50 ML BAG IVPB ONE; +fentaNYL 100 mcg/2 ml 50 MCG/ML VIAL IV PRN; -fentaNYL* 50 MCG/ML 2 ML VIAL (100 MCG VIAL) IV PRN; -fentaNYL* 50 MCG/ML 2 ML VIAL (100 MCG VIAL) ONE; -oxyCODONE/Acetamin 5/325 MG* TAB PO PRN
[2023-09-18] MEDS ORDERED: Chlorhexidine MOUTHWASH 0.12% 15 ML UDC ONE (07:49)
[2023-09-18] MEDS ORDERED: ceFAZolin 2 GM PREMIX 2 GM/50 ML BAG ONE (07:59)
[2023-09-18 08:30] LABS: Rapid COVID-19 Molecular Undetected (Undetected)
[2023-09-18] MEDS ORDERED: Thrombin 5,000 UNITS 1 APPLIC KIT - topical use - TOPICAL ONE (09:31)
[2023-09-18] MEDS ORDERED: ceFAZolin VIAL VIAL ONE (09:31)
[2023-09-18] MEDS ORDERED: Lidocaine 1% w EPI 1:100,000 MDV 20 ML VIAL ONE (09:31)
[2023-09-18] MEDS ORDERED: Gelfoam Sponge SIZE 100 SPONGE ONE (09:32)
[2023-09-18] MEDS ORDERED: Gelfoam 12-7 ADSORBABL SPONGE ONE (09:32)
[2023-09-18] MEDS ORDERED: Lidocaine 2% PF 5 ML VIAL ONE (09:34)
[2023-09-18] MEDS ORDERED: Propofol 10 MG/ML 20 ML BTL ONE (09:34)
[2023-09-18] MEDS ORDERED: Rocuronium 50 mg VIAL 10 mg/ml 5 ml VIAL (50 mg) ONE ×2 (09:34→10:18)
[2023-09-18] MEDS ORDERED: Midazolam 2 mg/2 ml VIAL 1 mg/ml 2 ml VIAL (2 mg) ONE (09:35)
[2023-09-18] MEDS ORDERED: fentaNYL 250 mcg/5 ml 50 MCG/ML 5 ml VIAL (250 MCG) ONE (09:35)
[2023-09-18] MEDS ORDERED: Phenylephrine IV 10 MG/ML 1 ml VIAL ONE (10:23)
[2023-09-18] MEDS ORDERED: Phenylephrine 40 mcg/mL 10mL (400mcg) SYRINGE ONE (10:23)
[2023-09-18] MEDS ORDERED: Dexamethasone IV 4 MG/ML VIAL 1 ml VIAL ONE (10:42)
[2023-09-18] MEDS ORDERED: Ondansetron 4 mg VIAL 2 MG/ML 2 ml VIAL ONE (10:42)
[2023-09-18] MEDS ORDERED: Acetaminophen IV 1 GM/100ML 1,000 MG/100 ML BAG IV ONE (11:06)
[2023-09-18] MEDS ORDERED: Benzocaine/Menthol LOZ MT PRN (12:57)
[2023-09-18] MEDS ORDERED: Phenol 1.4% Throat Spray BTL MT PRN (12:57)
[2023-09-18] MEDS ORDERED: Ondansetron 4 mg VIAL 2 MG/ML 2 ml VIAL IV PRN (12:57)
[2023-09-18] MEDS ORDERED: Morphine 2 MG/ML SYRINGE IV PRN (12:57)
[2023-09-18] MEDS ORDERED: Dextran 70/Hypromellose Tears Eye Drops 15 ml BTL (for Artificials Tears) BOTH EYES PRN (12:57)
[2023-09-18] MEDS ORDERED: Calcium Carb (TUMS) 500 mg CHEW TAB PO PRN (12:57)
[2023-09-18] MEDS: Lactated Ringers 1000 ml BAG 1,000 ML IV SCH ×2 (14:54→15:45)
[2023-09-18] MEDS: Buffered Lidocaine 1% SYRIN 1 ml INTRADERM ONE (15:47)
[2023-09-18] MEDS: Insulin GLARGINE 100 un/ml 10 ml VIAL SUBCUT SCH (20:23)
[2023-09-18] MEDS: Cholecalciferol (VIT D3) 1,000 unit TAB PO SCH (20:26)
[2023-09-18] MEDS: CMCS: Dorzolamide/Timolol OPTH (NF) 10 ML BOT BOTH EYES SCH (20:27)
[2023-09-18] MEDS: Latanoprost 0.005% 2.5 ml BTL BOTH EYES SCH (20:28)
[2023-09-18] MEDS: ICOSAPENT ETHYL 1 GM CAPSULE (NF) PO SCH (20:33)
[2023-09-19] MEDS: HYDROcodone/ACETAMIN 5/325 mg TAB PO PRN (03:05)
[2023-09-19] MEDS: Aspirin EC 81 mg TAB.EC (enteric coated) PO SCH (08:59)
[2023-09-19] MEDS: CMCS: Mirabegron 25 mg ER TAB (NF) PO SCH (08:59)
[2023-09-20] MEDS: Senna TAB 8.6 mg TAB PO PRN (09:07)
[2023-09-20] MEDS: HYDROcodone/ACETAMIN 5/325 mg TAB PO PRN (11:22)
[2023-09-20] MEDS: Magnesium CITRATE LIQ 300 ML BTL PO ONE (18:48)
[2023-09-21 10:57] VITALS: BP 93/56
[2023-09-21 11:53] LABS: Rapid COVID-19 Molecular Undetected (Undetected)
== END 2023-09-21 14:00 ==
LOC: OR 07:24 → SSU 07:24
PROVIDERS: ADMIT Neurological Surgery; ATTEND Neurological Surgery

== ENCOUNTER 2023-11-02 18:36 | Observation (INO) ==
[2023-11-02 19:59] LABS: ABS Eosinophils 0.1 10^3/uL (0.0-0.5); ABS Lymphocytes 1.2 10^3/uL (1.0-4.8); ABS Monocytes 0.7 10^3/uL (0.0-1.1); ABS Neutrophils 5.3 10^3/uL (1.5-7.6); ABS Nucleated RBC 0.01 10^3/ul; Eosinophil % 0.8 %; Hematocrit 36.4 % (38-53); Hemoglobin 12.1 g/dL (13.2-16.3); Lymphocyte % 16.4 %; Mean Corpuscular Hemoglobin 32.2 pg (27-33); Mean Corpuscular Hgb Conc 33.4 g/dL (31-36); Mean Corpuscular Volume 96.3 fL (80-97); Mean Platelet Volume 8.7 fL (7.5-11.2); Nucleated Red Blood Cells % 0.1 %/100WBC (0.0-0.8); Platelet Count 214 10^3/uL (150-450); Red Blood Count 3.78 10^6/uL (4.06-5.63); Red Cell Distribution Width 16.3 % (12-17); White Blood Count 7.3 10^3/uL (3.6-10.2)
[2023-11-02 20:09] LABS: INR 1.18 (0.83-1.13)
[2023-11-02 20:22] LABS: High Sens Troponin Baseline 17 pg/mL (<20)
[2023-11-02 20:35] LABS: Urine Appearance Clear; Urine Bilirubin Negative (Negative); Urine Blood Trace (Negative); Urine Color Colorless; Urine Glucose 3+ (>=300 mg/dL) (Negative); Urine Ketones Negative (Negative); Urine Nitrite Negative (Negative); Urine Protein Trace (Negative); Urine Specific Gravity 1.005 (1.002-1.030); Urine Urobilinogen Negative (Negative)
[2023-11-02 20:40] LABS: Urine Bacteria Absent /HPF (Absent); Urine Red Blood Cell Trace(0-2/hpf) /HPF (0-Trace); Urine White Blood Cell 3+(>20/hpf) /HPF (0-Trace)
[2023-11-02 20:55] LABS: ALT 8 U/L (7-52); AST 9 U/L (13-39); Acetaminophen < 15 mcg/mL; Albumin 4.4 g/dL (3.2-5.2); Albumin/Globulin Ratio 1.6 (1-3); Alcohol, S < 13 mg/dL (<13); Alkaline Phosphatase 49 U/L (35-149); Anion Gap 10 mmol/L (2-16); Blood Urea Nitrogen 34 mg/dL (6-24); CO2 Carbon Dioxide 27 mmol/L (22-32); Calcium 9.1 mg/dL (8.6-10.3); Chloride 107 mmol/L (101-111); Creatinine, Serum 1.65 mg/dL (0.67-1.17); Globulin 2.7 g/dL (2-4); Glucose 108 mg/dL (70-100); Magnesium 2.1 mg/dL (1.9-2.7); Potassium 4.1 mmol/L (3.5-5.0); Salicylate < 2.50 mg/dL (<30); Sodium 144 mmol/L (135-145); Total Bilirubin 0.4 mg/dL (0.2-1.0); Total Protein 7.1 g/dL (6.4-8.9); eGFR CKD-EPI 44.4 (>60)
[2023-11-02 21:07] LABS: TSH Ultra Thyroid Stim Horm 0.66 mcIU/mL (0.34-5.60)
[2023-11-02] MEDS: NS 0.9% 1000 ml BAG 1,000 ML IV ONE (21:28)
[2023-11-02 21:30] LABS: C Reactive Protein 15.84 mg/L (<8.01)
[2023-11-02 21:32] LABS: High Sensitivity Troponin 1 Hr 19 pg/mL (<20)
[2023-11-02] MEDS: Acetaminophen IV 1 GM/100ML 1,000 MG/100 ML BAG IV ONE (22:27)
[2023-11-02] MEDS: Gadoteridol (CONTRAST) 279.3 MG/ML 10 ML IV ONE (23:25)
[2023-11-03] MEDS: cefTRIAXone 2 gm/50 mL D5W 2 GM/50 ML BAG IV ONE (00:57)
[2023-11-03] MEDS ORDERED: Vancomycin 2,000 MG in NS 0.9% 250 ml 250 ML IVPB ONE (01:00)
[2023-11-03] MEDS: NS 0.9% 1000 ml BAG 1,000 ML IV SCH (01:41)
[2023-11-03] MEDS: Vancomycin 2,000 MG in NS 0.9% 500 ml BAG 500 ML IVPB ONE (02:42)
[2023-11-03 03:38] LABS: Erythrocyte Sed Rate 25 mm/Hr (0-19)
[2023-11-03] MEDS ORDERED: Vancomycin 1,000 MG in NS 0.9% 250 ml 250 ML IVPB ONE (05:17)
[2023-11-03] MEDS ORDERED: Dextrose 50% Syringe 50 ml 25 GM/50 ML SYRINGE IV PUSH PRN (05:32)
[2023-11-03 06:00] LABS: ABS Basophils 0.1 10^3/uL (0.0-0.1); ABS Eosinophils 0.1 10^3/uL (0.0-0.5); ABS Lymphocytes 0.9 10^3/uL (1.0-4.8); ABS Monocytes 0.5 10^3/uL (0.0-1.1); ABS Neutrophils 3.3 10^3/uL (1.5-7.6); Eosinophil % 1.4 %; Hematocrit 30.3 % (38-53); Hemoglobin 10.5 g/dL (13.2-16.3); Lymphocyte % 18.8 %; Mean Corpuscular Hemoglobin 33.3 pg (27-33); Mean Corpuscular Hgb Conc 34.8 g/dL (31-36); Mean Corpuscular Volume 95.8 fL (80-97); Platelet Count 152 10^3/uL (150-450); Red Blood Count 3.16 10^6/uL (4.06-5.63); Red Cell Distribution Width 16.2 % (12-17); White Blood Count 4.8 10^3/uL (3.6-10.2)
[2023-11-03] MEDS ORDERED: Vancomycin per Pharmacy 1 EA NOTE FOLLOW UP SCH (06:00)
[2023-11-03 06:36] LABS: Calcium 8.3 mg/dL (8.6-10.3); Creatinine, Serum 1.54 mg/dL (0.67-1.17); Potassium 3.4 mmol/L (3.5-5.0); eGFR CKD-EPI 48.2 (>60)
[2023-11-03] MEDS ORDERED: Aspirin EC 81 mg TAB.EC (enteric coated) PO SCH (09:00)
[2023-11-03] MEDS: Potassium Chlor 20 meq TAB.ER PO ONE (10:11)
[2023-11-03] MEDS: Dorzolamide/Timolol OPTH (NF) 10 ML BOT BOTH EYES SCH (10:12)
[2023-11-03] MEDS: MIRABEGRON 50 MG PO SCH (10:13)
[2023-11-03] MEDS: NF: ICOSAPENT ETHYL 1 GM CAPSULE (NF) PO SCH (10:13)
[2023-11-03] MEDS ORDERED: cefTRIAXone 2 gm/50 mL D5W 2 GM/50 ML BAG IV SCH (13:00)
[2023-11-03] MEDS: cefTRIAXone 2 gm/50 mL D5W 2 GM/50 ML BAG IV SCH (15:13)
[2023-11-03 18:12] VITALS: BP 137/72
[2023-11-03] MEDS ORDERED: CYANOCOBALAMIN 2500 MCG SL SCH (21:00)
[2023-11-03] MEDS ORDERED: Latanoprost 0.005% 2.5 ml BTL BOTH EYES SCH (21:00)
[2023-11-04] MEDS ORDERED: Vancomycin 2,000 MG in NS 0.9% 500 ml BAG 500 ML IVPB ONE
[2023-11-04] MEDS ORDERED: cefTRIAXone 2 gm/50 mL D5W 2 GM/50 ML BAG IV SCH (00:30)
== END 2023-11-03 19:15 | disposition short-term general hospital (02) ==
LOC: EDHOLD 18:36 → ED 18:36 → SUATTDRO 11-03 03:36 → MEDTELE 11-03 12:06
PROVIDERS: ADMIT Internal Medicine; ATTEND Student in an Organized Health Care Education/Training Program

== ENCOUNTER 2023-11-08 17:41 | Observation (INO) ==
[2023-11-08] MEDS ORDERED: Dextrose 50% Syringe 50 ml 25 GM/50 ML SYRINGE IV PUSH PRN (23:05)
[2023-11-09] MEDS: Latanoprost 0.005% 2.5 ml BTL BOTH EYES SCH (00:03)
[2023-11-09] MEDS: Heparin 5000 UNITS/ML 1 mL VIAL SUBCUT SCH (00:05)
[2023-11-09] MEDS: Nystatin TOP POWDER 15 GM BTL TOPICAL SCH (00:06)
[2023-11-09] MEDS: NF: ICOSAPENT ETHYL 1 GM CAPSULE (NF) PO SCH (00:59)
[2023-11-09] MEDS ORDERED: Vancomycin 1,000 MG in NS 0.9% 250 ml 250 ML IVPB SCH (06:00)
[2023-11-09] MEDS ORDERED: Vancomycin per Pharmacy 1 EA NOTE FOLLOW UP PRN (06:02)
[2023-11-09 06:12] LABS: ABS Eosinophils 0.1 10^3/uL (0.0-0.5); ABS Lymphocytes 1.5 10^3/uL (1.0-4.8); ABS Monocytes 0.5 10^3/uL (0.0-1.1); ABS Neutrophils 3.9 10^3/uL (1.5-7.6); ABS Nucleated RBC 0.01 10^3/ul; Eosinophil % 2.3 %; Hematocrit 38.3 % (38-53); Hemoglobin 12.7 g/dL (13.2-16.3); Lymphocyte % 25.1 %; Mean Corpuscular Hemoglobin 32.1 pg (27-33); Mean Corpuscular Hgb Conc 33.1 g/dL (31-36); Mean Corpuscular Volume 97.2 fL (80-97); Mean Platelet Volume 8.1 fL (7.5-11.2); Nucleated Red Blood Cells % 0.1 %/100WBC (0.0-0.8); Platelet Count 208 10^3/uL (150-450); Red Blood Count 3.94 10^6/uL (4.06-5.63); Red Cell Distribution Width 15.9 % (12-17); White Blood Count 6.2 10^3/uL (3.6-10.2)
[2023-11-09 06:32] LABS: C Reactive Protein 5.29 mg/L (<8.01); Calcium 9.2 mg/dL (8.6-10.3); Creatinine, Serum 1.46 mg/dL (0.67-1.17); Potassium 4.1 mmol/L (3.5-5.0); eGFR CKD-EPI 51.4 (>60)
[2023-11-09 06:42] LABS: Vancomycin Random 20.4 mcg/mL
[2023-11-09] MEDS: CMCS: Mirabegron 25 mg ER TAB (NF) PO SCH (08:46)
[2023-11-09] MEDS: Dorzolamide/Timolol OPTH (NF) 10 ML BOT BOTH EYES SCH (08:47)
[2023-11-09] MEDS: Vancomycin 1,750 MG in NS 0.9% 500 ml BAG 500 ML IVPB ONE (15:02)
[2023-11-09] MEDS: cefTRIAXone 2 gm/50 mL D5W 2 GM/50 ML BAG IV SCH (15:04)
[2023-11-09] MEDS: Vancomycin 1000 MG in NS 0.9% 250 ML IVPB ONE (15:41)
[2023-11-10 06:55] LABS: Creatinine, Serum 1.56 mg/dL (0.67-1.17); Vancomycin Random 15.9 mcg/mL; eGFR CKD-EPI 47.5 (>60)
[2023-11-10] MEDS: Vancomycin Random Level NOTE FOLLOW UP ONE (09:39)
[2023-11-10] MEDS: Vancomycin 1,500 MG in NS 0.9% 250 ml 250 ML IVPB SCH (16:34)
[2023-11-10] MEDS: Empagliflozin 25 MG TAB PO SCH (16:34)
[2023-11-11 05:45] LABS: Albumin 3.9 g/dL (3.2-5.2); Albumin/Globulin Ratio 1.3 (1-3); Calcium 9.3 mg/dL (8.6-10.3); Creatinine, Serum 1.49 mg/dL (0.67-1.17); Potassium 4.1 mmol/L (3.5-5.0); Total Bilirubin 0.3 mg/dL (0.2-1.0); Total Protein 6.9 g/dL (6.4-8.9); eGFR CKD-EPI 50.2 (>60)
[2023-11-12] MEDS: Aspirin EC 81 mg TAB.EC (enteric coated) PO SCH (11:26)
[2023-11-12] MEDS: Nystatin TOP POWDER 15 GM BTL TOPICAL SCH (11:28)
[2023-11-13] MEDS: Vancomycin Trough Check NOTE FOLLOW UP ONE (16:29)
[2023-11-14 13:47] VITALS: BP 122/73
[2023-11-16] MEDS ORDERED: Vancomycin Trough Check NOTE FOLLOW UP ONE (14:30)
== END 2023-11-14 13:54 | disposition swing bed (61) ==
LOC: INTOOBSV 17:41 → SSU 17:41 → SUATTDRO 21:51
PROVIDERS: ADMIT Neurological Surgery; ATTEND Hospitalist

== ENCOUNTER 2023-11-14 12:49 | Inpatient (IN) ==
[2023-11-14] MEDS ORDERED: Vancomycin per Pharmacy 1 EA NOTE FOLLOW UP SCH (13:00)
[2023-11-14] MEDS: cefTRIAXone 1 gm/50 mL D5W 1 GM/50 ML BAG IV SCH (14:45)
[2023-11-14] MEDS: Nystatin TOP POWDER 15 GM BTL TOPICAL SCH (14:46)
[2023-11-14] MEDS: Vancomycin 1,250 MG in NS 0.9% 250 ml 250 ML IVPB SCH (15:21)
[2023-11-14] MEDS: NF:ICOSAPENT ETHYL 1 GM CAPSULE (NF) PO SCH (19:57)
[2023-11-14] MEDS: Latanoprost 0.005% 2.5 ml BTL BOTH EYES SCH (19:58)
[2023-11-14] MEDS: Dorzolamide/Timolol OPTH (NF) 10 ML BOT BOTH EYES SCH (19:59)
[2023-11-15] MEDS: Aspirin EC 81 mg TAB.EC (enteric coated) PO SCH (09:13)
[2023-11-15] MEDS: Empagliflozin 25 MG TAB PO SCH (09:14)
[2023-11-15] MEDS: CMCS:Mirabegron 25 mg ER TAB (NF) PO SCH (09:15)
[2023-11-16 17:42] LABS: ABS Basophils 0.1 10^3/uL (0.0-0.1); ABS Eosinophils 0.2 10^3/uL (0.0-0.5); ABS Lymphocytes 1.6 10^3/uL (1.0-4.8); ABS Monocytes 0.6 10^3/uL (0.0-1.1); ABS Neutrophils 5.9 10^3/uL (1.5-7.6); Eosinophil % 2.9 %; Hematocrit 38.1 % (38-53); Hemoglobin 12.9 g/dL (13.2-16.3); Lymphocyte % 19.1 %; Mean Corpuscular Hemoglobin 32.7 pg (27-33); Mean Corpuscular Hgb Conc 33.9 g/dL (31-36); Mean Corpuscular Volume 96.4 fL (80-97); Mean Platelet Volume 8.9 fL (7.5-11.2); Platelet Count 202 10^3/uL (150-450); Red Blood Count 3.95 10^6/uL (4.06-5.63); Red Cell Distribution Width 16.3 % (12-17); White Blood Count 8.3 10^3/uL (3.6-10.2)
[2023-11-16 18:21] LABS: Albumin 4.2 g/dL (3.2-5.2); Albumin/Globulin Ratio 1.4 (1-3); C Reactive Protein 3.25 mg/L (<8.01); Creatinine, Serum 1.44 mg/dL (0.67-1.17); Globulin 3.1 g/dL (2-4); Potassium 4.4 mmol/L (3.5-5.0); Total Bilirubin 0.3 mg/dL (0.2-1.0); Total Protein 7.3 g/dL (6.4-8.9); eGFR CKD-EPI 52.3 (>60)
[2023-11-17] MEDS: cefTRIAXone 2 gm/50 mL D5W 2 GM/50 ML BAG IV SCH (14:05)
[2023-11-17] MEDS: Vancomycin Trough Check NOTE FOLLOW UP ONE (17:21)
[2023-11-21 16:23] LABS: Creatinine, Serum 1.52 mg/dL (0.67-1.17); Vancomycin Trough 14.9 mcg/mL
[2023-11-21] MEDS: Vancomycin Trough Check NOTE FOLLOW UP ONE (16:46)
[2023-11-22 13:11] LABS: ABS Eosinophils 0.2 10^3/uL (0.0-0.5); ABS Lymphocytes 1.4 10^3/uL (1.0-4.8); ABS Monocytes 0.5 10^3/uL (0.0-1.1); ABS Neutrophils 4.2 10^3/uL (1.5-7.6); Eosinophil % 2.7 %; Hematocrit 39.2 % (38-53); Hemoglobin 13.3 g/dL (13.2-16.3); Lymphocyte % 22.6 %; Mean Corpuscular Hemoglobin 32.8 pg (27-33); Mean Corpuscular Hgb Conc 33.9 g/dL (31-36); Mean Corpuscular Volume 96.8 fL (80-97); Nucleated Red Blood Cells % 0.1 %/100WBC (0.0-0.8); Platelet Count 191 10^3/uL (150-450); Red Blood Count 4.05 10^6/uL (4.06-5.63); Red Cell Distribution Width 16.5 % (12-17); White Blood Count 6.4 10^3/uL (3.6-10.2)
[2023-11-22 13:37] LABS: Albumin 4.3 g/dL (3.2-5.2); Albumin/Globulin Ratio 1.5 (1-3); C Reactive Protein 2.1 mg/L (<8.01); Calcium 9.2 mg/dL (8.6-10.3); Creatinine, Serum 1.45 mg/dL (0.67-1.17); Globulin 2.9 g/dL (2-4); Potassium 4.2 mmol/L (3.5-5.0); Total Bilirubin 0.3 mg/dL (0.2-1.0); Total Protein 7.2 g/dL (6.4-8.9); eGFR CKD-EPI 51.8 (>60)
[2023-11-24 17:39] LABS: Urine Appearance Clear; Urine Bilirubin Negative (Negative); Urine Blood Negative (Negative); Urine Color Light-Yellow; Urine Glucose 4+ (>=1000 mg/dL) (Negative); Urine Ketones Negative (Negative); Urine Nitrite Negative (Negative); Urine Protein Negative (Negative); Urine Urobilinogen Negative (Negative); Urine pH 5.5 (5.0-8.0)
[2023-11-28 16:26] LABS: Creatinine, Serum 1.59 mg/dL (0.67-1.17); Vancomycin Trough 17.1 mcg/mL; eGFR CKD-EPI 46.4 (>60)
[2023-11-28] MEDS: Vancomycin Trough Check NOTE FOLLOW UP ONE (18:05)
[2023-11-29 06:23] LABS: ABS Basophils 0.1 10^3/uL (0.0-0.1); ABS Eosinophils 0.1 10^3/uL (0.0-0.5); ABS Lymphocytes 1.5 10^3/uL (1.0-4.8); ABS Monocytes 0.6 10^3/uL (0.0-1.1); ABS Neutrophils 3.6 10^3/uL (1.5-7.6); ABS Nucleated RBC 0.01 10^3/ul; Eosinophil % 2.3 %; Hematocrit 36.3 % (38-53); Hemoglobin 12.3 g/dL (13.2-16.3); Lymphocyte % 25.2 %; Mean Corpuscular Hemoglobin 32.7 pg (27-33); Mean Corpuscular Hgb Conc 33.9 g/dL (31-36); Mean Corpuscular Volume 96.4 fL (80-97); Mean Platelet Volume 8.4 fL (7.5-11.2); Nucleated Red Blood Cells % 0.1 %/100WBC (0.0-0.8); Platelet Count 167 10^3/uL (150-450); Red Blood Count 3.76 10^6/uL (4.06-5.63); Red Cell Distribution Width 16.2 % (12-17); White Blood Count 5.9 10^3/uL (3.6-10.2)
[2023-11-29 07:37] LABS: Albumin 3.8 g/dL (3.2-5.2); Albumin/Globulin Ratio 1.5 (1-3); C Reactive Protein 3.06 mg/L (<8.01); Calcium 8.7 mg/dL (8.6-10.3); Creatinine, Serum 1.6 mg/dL (0.67-1.17); Globulin 2.6 g/dL (2-4); Potassium 3.5 mmol/L (3.5-5.0); Total Bilirubin 0.3 mg/dL (0.2-1.0); Total Protein 6.4 g/dL (6.4-8.9); eGFR CKD-EPI 46.1 (>60)
[2023-12-01 18:06] LABS: Urine Appearance Clear; Urine Bilirubin Negative (Negative); Urine Blood Negative (Negative); Urine Color Light-Yellow; Urine Glucose 4+ (>=1000 mg/dL) (Negative); Urine Ketones Negative (Negative); Urine Nitrite Negative (Negative); Urine Protein Negative (Negative); Urine Urobilinogen Negative (Negative)
[2023-12-03] MEDS: Nystatin TOP POWDER 15 GM BTL TOPICAL SCH (06:12)
[2023-12-05 06:32] LABS: Hematocrit 36.9 % (38-53); Hemoglobin 12.6 g/dL (13.2-16.3); Mean Corpuscular Hemoglobin 32.7 pg (27-33); Mean Platelet Volume 8.3 fL (7.5-11.2); Platelet Count 146 10^3/uL (150-450); Red Blood Count 3.84 10^6/uL (4.06-5.63); White Blood Count 4.5 10^3/uL (3.6-10.2)
[2023-12-05 06:52] LABS: Albumin 4.1 g/dL (3.2-5.2); Albumin/Globulin Ratio 1.6 (1-3); C Reactive Protein 13.89 mg/L (<8.01); Calcium 8.9 mg/dL (8.6-10.3); Creatinine, Serum 1.57 mg/dL (0.67-1.17); Globulin 2.6 g/dL (2-4); Total Bilirubin 0.4 mg/dL (0.2-1.0); Total Protein 6.7 g/dL (6.4-8.9); eGFR CKD-EPI 47.1 (>60)
[2023-12-05 07:47] LABS: ABS Basophils 0.1 10^3/uL (0.0-0.1); ABS Lymphocytes 0.6 10^3/uL (1.0-4.8); ABS Monocytes 0.5 10^3/uL (0.0-1.1); ABS Neutrophils 3.3 10^3/uL (1.5-7.6); Eosinophil % 0.8 %; Lymphocyte % 12.8 %; RBC Morphology Normal (Normal)
[2023-12-05] MEDS: Vancomycin Trough Check NOTE FOLLOW UP SCH (17:58)
[2023-12-06] MEDS: Senna TAB 8.6 mg TAB PO SCH (20:22)
[2023-12-07] MEDS: Polyethylene Glycol 3350 17 GM PACKET PO SCH (08:50)
[2023-12-09 12:27] LABS: C Reactive Protein 10.75 mg/L (<8.01); Calcium 8.8 mg/dL (8.6-10.3); Creatinine, Serum 1.9 mg/dL (0.67-1.17); Potassium 4.1 mmol/L (3.5-5.0); eGFR CKD-EPI 37.5 (>60)
[2023-12-12 08:02] VITALS: BP 99/70
== END 2023-12-12 11:55 | DRG 95 ==
LOC: SSU 13:55 → SUATTDRO 13:55 → MED 11-18 18:15
PROVIDERS: ADMIT Hospitalist; ATTEND Hospitalist